=== PATIENT | female | born 1965 | race Caucasian/White ===

== ENCOUNTER 2023-06-05 07:56 | Inpatient (IN) ==
--- OUTSIDE RECORDS SUMMARY | 2023-06-05 08:00 | External Medical Summary | Summary of Care ---
Author Name Unknown Organization [facility] Address [address] [place] [address] Phone [phone] Care Team Providers Care Admissions Specialist Name Role Phone Jean Claude Serrano MD Primary Care Provider [phone] Reason for Visit * Reason Comments New Med Request Encounter Details Date Type Department Care Team Description 02/13/2023 Refill [facility] [address] [place] [address] Jean Claude Serrano MD [address] [place] [address] HTN, goal below 140/90 Allergies Active Allergy Reactions Severity Noted Date Comments Amoxicillin-Pot Clavulanate 04/08/20 rash Pollen Other (Please comment) High 04/04/2015 rhinitis documented as of this encounter (statuses as of 02/13/2023) Medications Medication Sig Dispensed Refills Start Date End Date Status EXCEDRIN MIGRAINE 250-250-65 MG PO TABS as needed 0 Active Cholecalciferol (VITAMIN D3) 2000 units Capsule Take 1 Cap by mouth daily. 90 Cap 1 09/07/2017 Active YARELIS MICROLET LANCETS MISCIndications:Type 2 diabetes mellitus with hemoglobin A1c goal of less than 7.0% ([facility]) Use to test blood sugar up to 2 times daily dx e11.9 100 Each 5 12/27/2018 Active Blood Glucose Monitoring Suppl (CONTOUR NEXT MONITOR) w/Device KITIndications:Type 2 diabetes mellitus with hemoglobin A1c goal of less than 7.0% (HCC) Use to test blood sugar up to 2 times daily dx e11.9 1 Kit 5 12/27/2018 Active aspirin 81 MG chewable tabletIndications:Ty pe 2 diabetes mellitus with hemoglobin A1c goal of less than 7.0% (HCC) Take 1 Tab by mouth daily. with food. 100 Tab 5 03/13/2019 Active Contour Next Test In Vitro Strip (Glucose Blood)Indications:Ty pe 2 diabetes mellitus with hemoglobin A1c goal of less than 7.0% (HCC) TEST UP TO TWO TIMES DAILY 100 Strip 5 04/09/2020 Active Lisinopril 40 MG Oral Tablet Take 1 Tablet by mouth in the morning. 90 Tablet 1 10/13/2022 Active hydroCHLOROthiazide 25 MG Oral Tablet (Hydrodiuril) Take 1 Tablet by mouth in the morning. 90 Tablet 1 10/13/2022 Active metFORMIN HCl ER 500 MG Oral Tablet Extended Release 24 Hour (Glucophage XR)Indications:Type 2 diabetes mellitus with hemoglobin A1c goal of less than 7.0% (HCC) Take 2 Tablets by mouth 2 times a day 30 minutes before morning and evening meals. 360 Tablet 1 10/13/2022 Active Atorvastatin Calcium 20 MG Oral Tablet (Lipitor)Indications :Hyperlipidemia, unspecified hyperlipidemia type Take 1 Tablet by mouth in the morning. 90 Tablet 2 10/13/2022 Active Lisinopril-hydroCHLO ROthiazide 20-25 MG Oral TabletIndications:HT N, goal below 140/90 Take by mouth 1 Tablet in the morning. in the morning.. 30 Tablet 5 01/19/2022 3 Discontinue d(Medicatio n/Dose Changed) documented as of this encounter (statuses as of 02/13/2023) Active Problems Problem Noted Date Type 2 diabetes mellitus with hemoglobin A1c goal of less than 7.0% 11/09/2018 Paroxysmal tachycardia 09/08/2018 Vitamin D deficiency 09/08/2018 HTN, goal below 140/90 09/07/2017 Elevated liver enzymes 09/03/2016 Hyperlipidemia 09/03/2016 OVERWEIGHT, BMI= 29.44 07/25/10 1 Family history of ischemic heart disease 04/23/2008 ADVANCE DIRECTIVE INFORMATION 01/25/2007 Overview: No, Advance Directive brochure given to patient 12/14/06. FX PHALANX, HAND, RIGHT RING, DISTAL PHA LANX 11/16/2005 Chronic rhinitis 10/03/2003 Melasma 02/08/2002 Other acne 02/08/2002 Allergic rhinitis documented as of this encounter (statuses as of 02/13/2023) Resolved Problems Problem Noted Date Resolved Date Prediabetes 07/18/2018 11/16/2018 Overview: Per Prediabetes protocol #1 Impaired glucose tolerance 09/03/201609/08 Cough 08/15/2010 09/08/2018 Family history of diabetes mellitus 09/27/2009 09/08/2018 FINGER INJURY, RIGHT RING 11/16/20052018 POST-BRONCHITIC TUSSIVE SYNDROME 10/03/2003 11/20/2003 ACUTE URI NOS 10/03/2003 08/23/2008 Overview: Resolved per Benign Acute Dxs Protocol #3 ACUTE PHARYNGITIS 06/07/2002 11/20/2003 ACUTE URI NOS 06/07/2002 11/20/2003 Chronic rhinitis 06/07/2002 11/20/2003 Other chronic sinusitis 10/20/1999 11/20/19 04 Cough 10/20/1999 11/20/2003 documented as of this encounter (statuses as of 02/13/2023) Immunizations Name Administration Dates Next Due COVID-19 mRNA, LNP-s, No Pre serve, 2-Dose Series (Moderna) 08/20/2020,07/23/2020 Pneumococcal Polysaccharide PPV23 (Pneumovax) 03/13/2019 Seasonal Influenza, Quadriva lent, No Preserve, 6 Mons & Above, IM 06/09/2022,06/06/2021,03/20/2020,1010/2017,09/07/2017 04/07/2019 Seasonal Influenza, Quadriva lent, No Preserve, IM 09/02/2016 TDAP (age 10 and older)(Boostrix) 06/09/2022 TDAP (age 11 and older)(Adacel) 10/29/2011 Zoster Vaccine Recombinant (Shingrix) 10/17/2020 ,09/15/2019 documented as of this encounter Social History Tobacco Use Types Packs/Day Years Used Date Smoking Tobacco: Never Smokeless Tobacco: Never Alcohol Use Standard Drinks/Week Comments Yes 0 (1 standard drink = 0.6 oz pur e alcohol) social Food Insecurity Answer Date Recorded Within the past 12 months, y ou worried that your food would run out before you got money to buy more. Never true 03/20/2020 Within the past 12 months, t he food you bought just didn't last and you didn't have money to get more. Never true 03/20/2020 Sex Assigned at Date Recorded Not on file Job Start Date Occupation Industry Not on file Not on file Not on file documented as of this encounter Miscellaneous Notes * Telephone Encounter - Desmond Mayers RPh - 02/13/2023 2:38 PM EDTRefused Prescriptions: Disp Refills Lisinopril-hydroCHLOROthiazide 20-25 MG Or*90 Tab*1 Sig: Take by mouth 1 Tablet in the morning. in the morningRefused By: Roberto MAYERS for Refusal: Refill Not AppropriateReason for Refusal Comment: patient no longer on combination, taking individually * Telephone Encounter - Desmond Mayers RPh - 02/13/2023 2:33 PM EDT Patient placed on Lisinopril 40 and HCTZ 25mg seperately as of 10/1122. Request for prior dosing of combination tablet refused. Removed combination tablet from med list to prevent inadvertant refill. Thanks, Desmond Mayers Rph, Pharm D. Clinical Pharmacist [facility] (Former[facility]STEPHANIE [phone] 02/13/2023,2:37 PM documented in this encounter Plan of Treatment Scheduled Procedures Name Priority Associated Diagnoses Date/Ti me COLONOSCOPY FLEXIBLE PROXIMAL DIAGNOSTIC Recall Colon cancer screening Health Maintenance Due Date Last Done Comments Hepatitis B (1 of 3 - 3-dose series) 1965 Hepatitis C Screening 1983 HPV/Co-Test 1995 Cologuard 2010 Fecal Occult Blood Test 2010 Sigmoidoscopy 2010 Pneumococcal Vaccine: Pediatrics (0 to 5 Years) and At-Risk Patients (6 to 64 Years) (2 - PCV) 03/13/2020 03/13/2019 COVID-19 Vaccine (3 - Moderna series) 10/15/2020 08/20/2020, 07/23/2020 DIABETES-FOOT EXAM 03/20/2021 03/20/2020, 03/13/2019 Depression Screening, Annual for Pts 12 and Over 03/20/2021 03/20/2020 Cervical Cancer Screening 05/05/2022 Pap Smear 05/05/2022 05/05/2019, 07/2018, 01/25/2014, Additional history exists Albumin/Creatinine Ratio 10/08/2022 022, 09/08/2018, 03/19/2017 B-12 10/08/2022 10/08/2021, 10/03, 09/15/2019 HbA1c 12/08/2022 06/09/2022, 04/0 12/2021, 04/09/2021, Additional history exists Influenza Vaccine (FLU shot) (#1) 2023 06/09/2022, 06/06/2021, 03/20/2020, Additional history exists GFR 06/09/2023 06/09/2022, 08/0 11/2021, 10/08/2021, Additional history exists Mammogram 12/15/2023 12/14/2022, 09/02, 05/17/2019, Additional history exists DIABETES-EYE EXAM 12/25/2023 12/24/2022, , 08/22/2021, Additional history exists Colonoscopy 05/10/2027 05/10/2017, 05/10/2017 Colorectal Cancer Screening 05/10/2027 Lipid Panel 06/09/2027 06/09/2022, 04/0 12/2021, 12/10/2020, Additional history exists DTaP,Tdap,and Td Vaccines (3 - Td or Tdap) 06/09/2032 06/09/2022, 10/29/2011 Zoster Vaccines Completed 10/17/2020, 09/15/2019 GARDASIL-HPV IMMUNIZATION SERIES Aged Out No longer eligible based on patient's age to complete this topic MENINGOCOCCAL (MENACTRA/MENVEO) Aged Out No longer eligible based on patient's age to complete this topic documented as of this encounter Medical Devices Not on filedocumented as of this encounter Visit Diagnoses Diagnosis HTN, goal below 140/90 Unspecified essential hypertension documented in this encounter Advance Directives Latest Code Status on File Code Status Date Activated Date Inactivated Comments Full Code 09/06/2014 9:44 AM 09/06/2014 3:03 PM This or lacey reflects the patients wishes and were consensually agreed upon. Care Teams Admissions Specialist Relationship Specialty Start Date End Date Jean Claude Serrano MD [address] [place] [address] PCP - General 11/20/03 documented as of this encounter
--- OUTSIDE RECORDS SUMMARY | 2023-06-05 08:00 | External Medical Summary | Summary of Care ---
Author Name Unknown Organization [facility] Address [address] [place] [address] Phone [phone] Care Team Providers Care Copier Field Service Technician Name Role Phone Jean Claude Serrano MD Primary Care Provider [phone] Encounter Details Date Type Department Care Team Description 12/25/2022 Orders Only [facility] [address] [place] [address] Jean Claude Serrano MD [address] [place] [address] Allergies Active Allergy Reactions Severity Noted Date Comments Amoxicillin-Pot Clavulanate 04/08/20 18 rash Pollen Other (Please comment) High 04/04/2015 rhinitis documented as of this encounter (statuses as of 12/25/2022) Medications Medication Sig Dispensed Refills Start Date End Date Status EXCEDRIN MIGRAINE 250-250-65 MG PO TABS as needed 0 Act ebony Cholecalciferol (VITAMIN D3) 2000 units Capsule Take 1 Cap by mouth daily. 90 Cap 1 09/07/2017 Active YARELIS MICROLET LANCETS MISCIndications:Type 2 diabetes mellitus with hemoglobin A1c goal of less than 7.0% ([facility]) Use to test blood sugar up to 2 times daily dx e11.9 100 Each 5 12/27/2018 Active Blood Glucose Monitoring Suppl (CONTOUR NEXT MONITOR) w/Device KITIndications:Type 2 diabetes mellitus with hemoglobin A1c goal of less than 7.0% (HCC) Use to test blood sugar up to 2 times daily dx e11.9 1 Kit 5 12/27/2018 Active aspirin 81 MG chewable tabletIndications:Type 2 diabetes mellitus with hemoglobin A1c goal of less than 7.0% (HCC) Take 1 Tab by mouth daily. with food. 100 Tab 5 03/13/2019 Active Contour Next Test In Vitro Strip (Glucose Blood)Indications:Type 2 diabetes mellitus with hemoglobin A1c goal of less than 7.0% (HCC) TEST UP TO TWO TIMES DAILY 100 Strip 5 04/09/2020 Active Lisinopril-hydroCHLORO thiazide 20-25 MG Oral TabletIndications:HTN, goal below 140/90 Take by mouth 1 Tablet in the morning. in the morning.. 30 Tablet 5 01/19/2022 Active Lisinopril 40 MG Oral Tablet Take [...] Active Atorvastatin Calcium 20 MG Oral Tablet (Lipitor)Indications:H yperlipidemia, unspecified hyperlipidemia type Take 1 Tablet by mouth in the morning. 90 Tablet 2 10/13/2022 Active documented as of this encounter (statuses as of 12/25/2022) Active Problems Problem Noted Date Type 2 [...] as of this encounter (statuses as of 12/25/2022) Resolved Problems Problem Noted Date Resolved Date [...] as of this encounter (statuses as of 12/25/2022) Immunizations Name Administration Dates Next Due COVID-19 mRNA, LNP-s, No Pre serve, 2-Dose Series (Moderna) 08/20/2020,07/23/2020 Pneumococcal Polysaccharide PPV23 (Pneumovax) 03/13/2019 Seasonal Influenza, Quadriva lent, No Preserve, 6 Mons & Above, IM 06/09/2022,06/06/2021,03/20/2020,10/0 10/2017,09/07/2017 04/07/2019 Seasonal Influenza, Quadriva lent, No Preserve, [...] on file documented as of this encounter Plan of Treatment Scheduled Procedures Name Priority Associated Diagnoses Date/Ti me COLONOSCOPY FLEXIBLE PROXIMAL DIAGNOSTIC Recall Colon cancer screening Health Maintenance Due Date Last Done Comments Hepatitis B (1 of 3 - 3-dose series) 1965 Hepatitis C Screening 1983 Cologuard 2010 Fecal Occult Blood Test 2010 Sigmoidoscopy 2010 Pneumococcal Vaccine: Pediatrics (0 to 5 Years) and At-Risk Patients (6 to 64 Years) (2 - PCV) 03/13/2020 03/13/2019 COVID-19 Vaccine (3 - Moderna series) 10/15/2020 08/20/2020, 07/23/2020 DIABETES-FOOT EXAM 03/20/2021 03/20/2020, 03/13/2019 Depression Screening, Annual for Pts 12 and Over 03/20/2021 03/20/2020 Albumin/Creatinine Ratio 10/08/2022 04/ 022, 09/08/2018, 03/19/2017 Yearly B-12 10/08/2022 10/08/2021, 10/03, 09/15/2019 HbA1c 12/08/2022 06/09/2022, 04/0 12/2021, 04/09/2021, Additional history exists GFR 06/09/2023 06/09/2022, 08/0 11/2021, 10/08/2021, Additional history exists DIABETES-EYE EXAM 12/05/2023 12/24/2022, , 08/22/2021, Additional history exists Mammogram 12/15/2023 12/14/2022, 09/02, 05/17/2019, Additional history exists Pap Smear 05/05/2024 05/05/2019, 07/2018, 01/25/2014, Additional history exists Colonoscopy 05/10/2027 05/10/2017, 05/10/2017 Colorectal Cancer Screening 05/10/2027 Lipid Panel 06/09/2027 06/09/2022, 12/2021, 12/10/2020, Additional history exists DTaP,Tdap,and Td Vaccines (3 - Td or Tdap) 06/09/2032 06/09/2022, 10/29/2011 Zoster Vaccines Completed 10/17/2020, 09/15/2019 Influenza Vaccine (FLU shot) Completed 12/2021, 06/06/2021, 03/20/2020, Additional history exists GARDASIL-HPV IMMUNIZATION SERIES Aged Out No longer eligible based on patient's age to complete this topic MENINGOCOCCAL (MENACTRA/MENVEO) Aged Out No longer eligible based on patient's age to complete this topic documented as of this encounter Medical Devices Not on filedocumented as of this encounter Procedures Procedure Name Priority Date/Time Associated Diagnosis Comments DIABETIC EYE EXAM Routine 12/24/2022 documented in this encounter Results * DIABETIC EYE EXAM (12/24/2022) 12/24/2022 Jean Claude Serrano MD OTHER OUTSIDE LAB (SEE SCANNED REPORT) documented in this encounter Advance Directives Latest Code Status on File Code Status Date Activated Date Inactivated Comments Full Code 09/06/2014 9:44 AM 09/06/2014 3:03 PM This or lacey reflects the patients wishes and were consensually agreed upon. Care Teams Copier Field Service Technician Relationship Specialty Start Date End Date Jean Claude Serrano MD [address] [place] [address] PCP - General 11/20/03 documented as of this encounter
--- OUTSIDE RECORDS SUMMARY | 2023-06-05 08:00 | External Medical Summary | Summary of Care ---
Author Name Unknown Organization [facility] Address [address] [place] [address] Phone [phone] Care Team Providers Care Direct Care Provider Name Role Phone Jean Claude Serrano MD Primary Care Provider Reason for Visit * Reason Onset Date Comments Health Maintenance 05/13/2023 Encounter Details Date Type Department Care Team (Late st Contact Info) Description 05/13/2023 Telephone [facility] [address] [place] [address] Jean Claude Serrano MD [address] [place] [address] Health Maintenance Allergies Active Allergy Reactions Criticality Noted Date Comments Amoxicillin-Pot Clavulanate 04/08/20 18 rash Pollen Other (Please comment) High 04/04/2015 rhinitis documented as of this encounter (statuses as of 05/13/2023) Medications Medication Sig Dispensed Refills Start Date End Date Status EXCEDRIN MIGRAINE 250-250-65 MG PO TABS as needed 0 Act ebony Cholecalciferol (VITAMIN D3) 2000 units Capsule Take 1 Cap by mouth daily. 90 Cap 1 09/07/2017 Active YARELIS MICROLET LANCETS MISCIndications:Type 2 diabetes mellitus with hemoglobin A1c goal of less than 7.0% ([facility]) Use to test blood sugar up to [...] as of this encounter (statuses as of 05/13/2023) Active Problems Problem Noted Date Diagnosed Date Type 2 diabetes mellitus wit h hemoglobin A1c goal of less than 7.0% 11/09/2018 Paroxysmal tachycardia 09/08/2018 Vitamin D deficiency 09/08/2018 HTN, goal below 140/90 09/07/2017 Elevated liver enzymes 09/03/2016 Hyperlipidemia 09/03/2016 OVERWEIGHT, BMI= 29.44 07/25/10 07/25/2010 Family history of ischemic heart disease 008 ADVANCE DIRECTIVE INFORMATION 01/25/2007 Overview: No, Advance Directive brochure given to patient 12/14/06. FX PHALANX, HAND, RIGHT RING, DISTAL PHALANX Chronic rhinitis 10/03/2003 Melasma 02/08/2002 Other acne 02/08/2002 Allergic rhinitis documented as of this encounter (statuses as of 05/13/2023) Resolved Problems Problem Noted Date Diagnosed Date Resolved Date Prediabetes 07/18/2018 11/16/2018 Overview: Per Prediabetes protocol #1 Impaired glucose tolerance 09/03/2016 0 09/08/2018 Cough 08/15/2010 09/08/2018 Family history of diabetes mellitus 09/27/2009 09/08/2018 FINGER INJURY, RIGHT RING 11/16/2005 POST-BRONCHITIC TUSSIVE SYNDROME 10/03/2003 11/20/2003 ACUTE URI NOS 10/03/2003 08/23/2008 Overview: Resolved per Benign Acute Dxs Protocol #3 ACUTE PHARYNGITIS 06/07/2002 11/20/2003 ACUTE URI NOS 06/07/2002 11/20/2003 Chronic rhinitis 06/07/2002 11/20/2003 Other chronic sinusitis 10/20/199911/02 Cough 10/20/1999 11/20/2003 documented as of this encounter (statuses as of 05/13/2023) Immunizations Name Administration Dates Next Due COVID-19 mRNA, LNP-s, No Pre serve, 2-Dose Series (Moderna) 08/20/2020,07/23/2020 Pneumococcal Polysaccharide PPV23 (Pneumovax) 03/13/2019 SEASONAL INFLUENZA, PF, 6 M & Above, IM , (FLULAVAL or FLUZONE) 06/09/2022,06/06/2021,03/20/2020,10/10/2017,09/07/2017 04/07/2019 Seasonal Influenza, Quadriva lent, No Preserve, [...] = 0.6 oz pur e alcohol) social PHQ-2 Answer Date Recorded PHQ-2 Score 0 03/20/2020 Hunger Vital Sign Answer Date Recorded Worried About Running Out of Food in the Last Ye ar Never true 03/13/2019 Ran Out of Food in the Last Year Never true 03/13/2019 Sex and Gender Information Value Date Recorded Sex Assigned at Not on file Gender Identity Not on file Sexual Orientation Straight 08/08/2019 3: 47 PM EST Job Start Date Occupation Industry Not on file Not on file Not on file documented as of this encounter Miscellaneous Notes * Telephone Encounter - Hayley Patten LPN - 05/13/2023 1:49 PM EST Care Gaps Comprehensive Care Outreach Last Office/Telemedicine Visit: 06/09/2022 (in office), Visit date not found (telemedicine) Next Office Visit: Visit date not found Hemoglobin AIC Results: Lab Results Component Value Date/Time HEMOGLOBIN A1C - [facility] 6.4 (H) 06/09/2022 01:51 PM HEMOGLOBIN A1C - [facility] 6.0 (H) 10/08/2021 08:01 AM HEMOGLOBIN A1C - [facility] 5.6 04/09/2021 11:36 AM HEMOGLOBIN A1C - [facility] 7.5 (H) 03/20/2020 10:23 AM HEMOGLOBIN A1C - [facility] 6.4 (H) 09/15/2019 10:14 AM HEMOGLOBIN A1C - [facility] 6.1 (H) 03/13/2019 09:45 AM Reviewed Health Maintenance below: Health Maintenance Topic Date Due Hepatitis B (1 of 3 - 3-dose series) Never done Hepatitis C Screening Never done Pneumococcal Vaccine: Pediatrics (0 to 5 Years) and At-Risk Patients (6 to 64 Years) (2 - PCV) 03/13/2020 Diabetic Foot Exam 03/20/2021 Depression Screening 03/20/2021 Cervical Cancer Screening 05/05/2022 Albumin/Creatinine Ratio 10/08/2022 B-12 10/08/2022 HbA1c 12/08/2022 Influenza Vaccine (FLU shot) (1) 03/05/2023 COVID-19 Vaccine (3 - 2022-24 season) 2023 GFR 06/09/2023 Pap Urine/abs ov Care Gap Outreach Action Taken: Left message documented in this encounter Plan of Treatment [...] 64 Years) (2 - PCV) 03/13/2020 03/13/2019 Depression Screening 03/20/2021 03/20/2020 Diabetic Foot Exam 03/20/2021 03/20/2020, 03/13/2019 Cervical Cancer Screening 05/05/2022 Pap Smear 05/05/2022 05/05/2019, 1107/2018, 01/25/2014, Additional history exists Albumin/Creatinine Ratio 10/08/2022 022, 09/08/2018, 03/19/2017 B-12 10/08/2022 10/08/2021, 10/03, 09/15/2019 HbA1c 12/08/2022 06/09/2022, 040 12/2021, 04/09/2021, Additional history exists COVID-19 Vaccine ( season) 2023 08/20/2020, 07/23/2020 Influenza Vaccine (FLU shot) (#1) 2023 06/09/2022, 06/06/2021, 03/20/2020, Additional history exists GFR 06/09/2023 06/09/2022, 08/0 11/2021, 10/08/2021, Additional history exists Mammogram 12/15/2023 12/14/2022, 09/02, 05/17/2019, Additional history exists Diabetic Eye Exam 12/25/2023 12/24/2022, , 08/22/2021, Additional history exists [...] Not on filedocumented as of this encounter Advance Directives Latest Code Status on File Code Status Date Activated Date Inactivated Comments Full Code 09/06/2014 9:44 AM 09/06/2014 3:03 PM This or lacey reflects the patients wishes and were consensually agreed upon. Care Teams Direct Care Provider Relationship Specialty Start Date End Date Jean Claude Serrano MD [address] [facility] [address] PCP - General 11/20/03 documented as of this encounter
--- OUTSIDE RECORDS SUMMARY | 2023-06-05 08:00 | External Medical Summary | Summary of Care ---
Author Name Unknown Organization [facility] Address [address] [place] [address] Phone [phone] Care Team Providers Care Automatic Fabric Cutter Name Role Phone Jean Claude Serrano MD Primary Care Provider Encounter Details Date Type Department Care Team Description 12/08/2022 Orders Only [facility] [address] [place] [address] Jean Claude Serrano MD [address] [place] [address] Allergies Active Allergy Reactions Severity Noted Date Comments Amoxicillin-Pot Clavulanate 04/08/20 18 rash Pollen Other (Please comment) High 04/04/2015 rhinitis documented as of this encounter (statuses as of 12/08/2022) Medications Medication Sig Dispensed Refills Start Date End Date Status EXCEDRIN MIGRAINE 250-250-65 MG PO TABS as needed 0 Act ebony Cholecalciferol (VITAMIN D3) 2000 units Capsule Take 1 Cap by mouth daily. 90 Cap 1 09/07/2017 Active YARELIS MICROLET LANCETS MISCIndications:Type 2 diabetes mellitus with hemoglobin A1c goal of less than 7.0% ([facility]) Use to test blood sugar up [...] as of this encounter (statuses as of 12/08/2022) Active Problems Problem Noted Date Type 2 [...] as of this encounter (statuses as of 12/08/2022) Resolved Problems Problem Noted Date Resolved Date [...] as of this encounter (statuses as of 12/08/2022) Immunizations Name Administration Dates Next Due COVID-19 [...] as of this encounter Plan of Treatment Upcoming Encounters Date Type Specialty Care Team Description 12/14/2022 Imaging Radiology Scheduled Procedures Name Priority Associated Diagnoses Date/Ti [...] PCV) 03/13/2020 03/13/2019 COVID-19 Vaccine (3 - Booster for Moderna series) 10/15/2020 08/20/2020, 07/23/2020 DIABETES-FOOT EXAM 03/20/2021 03/20/2020, 03/13/2019 Depression Screening, Annual for Pts 12 and Over 03/20/2021 03/20/2020 DIABETES-EYE EXAM 08/22/2022 12/04/2022, , 04/24/2020, Additional history exists Mammogram 09/12/2022 09/12/2021, 05/05, 04/28/2017, Additional history exists Albumin/Creatinine Ratio 10/08/20222 022, 09/08/2018, 03/19/2017 Yearly B-12 10/08/2022 10/08/2021, 10/03, 09/15/2019 HbA1c 12/08/2022 06/09/2022, 04/0 12/2021, 04/09/2021, Additional history exists GFR 06/09/2023 06/09/2022, 08/0 11/2021, 10/08/2021, Additional history exists Pap Smear 05/05/2024 05/05/2019, 1107/2018, 01/25/2014, Additional history exists Colonoscopy 05/10/2027 05/10/2017, [...] Associated Diagnosis Comments DIABETIC EYE EXAM Routine 12/04/2022 documented in this encounter Results * DIABETIC EYE EXAM (12/04/2022) 12/04/2022 History Per Patient OTHER OUTSIDE LAB (SEE SCANNED REPORT) documented in this encounter Advance Directives Latest Code Status on File Code Status Date Activated Date Inactivated Comments Full Code 09/06/2014 9:44 AM 09/06/2014 3:03 PM This or lacey reflects the patients wishes and were consensually agreed upon. Care Teams Automatic Fabric Cutter Relationship Specialty Start Date End Date [place] [address] PCP - General 11/20/03 documented as of this encounter
[2023-06-05] MEDS ORDERED: ONDANSETRON INJ 2 MG/ML 2 ML VIAL IV STA (08:18)
--- NOTE | 2023-06-05 08:22 | Emergency Department Note ---
Impression & Plan DKA (diabetic ketoacidosis), Acute hyperglycemia, Metabolic acidosis, Vomiting ED Provider Note NAME: LAKSHMI ORNELAS AGE: 57 SEX: F : 1965 ARRIVES VIA: Walk-In INFORMANT: Patient ED PROVIDER(S): Andrea Raman DO CHIEF COMPLAINT: vomiting and sob HPI: Patient is a 57-year-old type II diabetic who presents to the ER for upper respiratory symptoms which initially started over a week ago. She was placed on doxycycline and steroids recently. Over the past 24 hours she has been having persistent vomiting. She is unable to keep anything down. Sugars have been reading critically high. She does still admit to shortness of breath. She does have diffuse myalgias. No dysuria, urgency, or frequency. No other exacerbating or remitting factors. No history of asthma or COPD. ADDITIONAL HISTORY OBTAINED: Per HPI Chronic Medical/Social Conditions Affecting Care: Per HPI PAST MEDICAL HISTORY:See Below PAST SURGICAL HISTORY:See Below FAMILY HISTORY:See Below SOCIAL HISTORY:See Below HOME MEDICATIONS:See Below ALLERGIES:See Below VITALS:See Below PHYSICAL EXAMINATION: GENERAL: Sitting up in bed, alert, ill-appearing, disheveled EYE EXAM: normal conjunctiva. OROPHARYNX: mucous membranes are dry NECK: supple, no nuchal rigidity, no adenopathy, non-tender LUNGS: Clear to auscultation. Normal chest wall mechanics HEART: no murmurs, S1 normal and S2 normal ABDOMEN: abdomen soft, non-tender, normo-active bowel sounds, no masses, no rebound or guarding. BACK: Back is symmetrical on inspection and there is no deformity, no midline tenderness, no CVA tenderness. SKIN: no rashes and no bruising UPPER EXTREMITIES: upper extremities are grossly normal. LOWER EXTREMITIES: No pitting edema. NEURO EXAM: Normal sensorium, cranial nerves II-XII grossly intact, normal speech, no gross weakness of arms, no gross weakness of legs. MEDICAL DECISION MAKING: Patient is a 57-year-old female who presents the ER for nausea vomiting. IV was established blood work is obtained. Labs show no significant leukocytosis or anemia. INR unremarkable. ABG with a pH of 7.1, bicarb of 3. BMP with a hyponatremia 131 and a potassium of 5.1 in the setting of a CO2 of 8 with a 30 and a creatinine of 2.4 consistent with DKA. Sugars were initially greater than 800. Lactate was slightly elevated. Bilirubin and LFTs were unremarkable. Troponin was negative. Lipase mildly elevated. Viral panel was negative. Patient had a benign abdominal exam. She was given 2 L of normal saline IV bolus x1 in combination with 2 g of Rocephin as prophylaxis. Following this she was given additional liter bolus of Plasma-Lyte with 10 mEq of potassium. She was then placed on Plasma-Lyte 1 L with 40 mill equivalents of potassium at 250 mL an hour for 4 hours per the request of cautery from the ICU. I also discussed the case with the hospitalist Dr. Peterson for further evaluation management treatment. Patient was updated bedside. External Records Reviewed: None Consults/Care Managements Discussions: Per [facility] Triage Nursing notes reviewed. Limited review of prior medical records performed Vital Signs: reviewed and remarkable for hypotension Differential diagnosis: Infection, dehydration, metabolic abnormality, hypo/hyperglycemia, electrolyte disturbance, anemia, hypoxia, cardiac sources, intracerebral event, toxicologic, neurologic, as well as other pathologies. ER treatment provided: See below Diagnostics interpreted by me include EKG and cardiac monitoring as listed below: -Cardiac Monitoring: An order was placed for continuous cardiac monitoring. The monitor shows a rate of 90 with sinus rhythm. -ECG: Sinus rhythm rate 83 Normal axis No PVCs QTc 444 -Laboratory studies:Interpreted by me as stated above in MDM and shown below. Imaging studies: Xrays: As interpreted by me: Portable AP upright 1 view of the chest shows no focal and straight CTs show: none Procedures:none Critical Care: I have personally spent 75 minutes of critical care time in the direct management of this patient. This includes bedside care, interpretation of diagnostic studies, and testing, discussion with consultants, patient, and family members, and other required patient management activities. This 75 minutes is in excess of all separately billable procedures. Past Med/Surg History Social History Smoking Status: Never smoker Feels Safe at Home: Yes Allergies Allergies Allergy/AdvReac Type Severity Reaction Status Date / Time No Known Allergies Allergy Verified 06/05/23 09:10 [id number] Allergy Unknown Unknown Uncoded 06/05/23 09:10 [id number] Allergy Unknown Unknown Uncoded 06/05/23 09:10 N Allergy Unknown Unknown Uncoded 06/05/23 09:10 Home Meds Home Medications Medication Instructions Recorded Confirmed atorvastatin 20 mg tablet 20 mg PO HS 06/05/23 06/05/23 doxycycline monohydrate 100 mg 100 mg PO BID 06/05/23 06/05/23 tablet hydrochlorothiazide 25 mg tablet 25 mg PO QAM 06/05/23 06/05/23 lisinopril 40 mg tablet 40 mg PO QAM 06/05/23 06/05/23 metformin 500 mg tablet,extended 1,000 mg PO BID 06/05/23 06/05/23 release 24 hr Results & Data (ED) Vital Signs Vital Signs - 24 hr 06/05/23 08:04 06/05/23 08:14 06/05/23 08:17 Temperature 36.0 C L Temperature Source Temporal Artery Scan Pulse Rate 92 H 88 87 Pulse Rate from SpO2 Sensor Respiratory Rate 20 Blood Pressure 95/61 L 126/75 Blood Pressure Mean 72 92 Pulse Oximetry 100 Oxygen Delivery Method Room Air Sepsis Recent Fever Within 48 Hours No Sepsis New/Unexplained Change in Mental Status N/A Sepsis Action Taken by Nursing No Action Required 06/05/23 08:18 06/05/23 09:18 06/05/23 09:30 Temperature Temperature Source Pulse Rate 82 82 83 Pulse Rate from SpO2 Sensor 82 83 Respiratory Rate 20 19 Blood Pressure 124/70 118/63 Blood Pressure Mean 88 81 Pulse Oximetry 100 100 100 Oxygen Delivery Method Room Air Sepsis Recent Fever Within 48 Hours Sepsis New/Unexplained Change in Mental Status Sepsis Action Taken by Nursing 06/05/23 10:00 Temperature Temperature Source Pulse Rate 86 Pulse Rate from SpO2 Sensor 86 Respiratory Rate 26 H Blood Pressure 125/76 Blood Pressure Mean 92 Pulse Oximetry 100 Oxygen Delivery Method Sepsis Recent Fever Within 48 Hours Sepsis New/Unexplained Change in Mental Status Sepsis Action Taken by Nursing Laboratory Data 06/05/23 08:15 06/05/23 10:30 Lab Results 06/05/23 06/05/23 06/05/23 Range/Units 08:08 08:15 08:21 WBC 7.82 (4.8-10.8) K/ul RBC 5.27 (4.20-5.40) M/uL Hgb 15.1 (12.0-16.0) g/dl POC Hgb 16.0 (12.0-16.0) g/dl Hct 46.3 (37.0-47.0) % POC Hct 47 (37-47) % MCV 87.9 (80.0-100.0) fL MCH 28.7 (25.0-34.0) pg MCHC 32.6 (32.0-36.0) g/dL RDW Std Deviation 42.1 (36.4-46.3) fL RDW Coeff of Hever 13.1 (11.5-14.5) % Plt Count 374 (130-400) K/uL MPV 10.3 (9.4-12.4) fL Immature Gran % (Auto) 0.8 % Neut % (Auto) 67.9 % Lymph % (Auto) 27.7 % Thayer % (Auto) 3.3 % Eos % (Auto) 0.0 % Baso % (Auto) 0.3 % Neut # (Auto) 5.31 (1.40-6.50) K/uL Lymph # (Auto) 2.17 (1.20-3.40) K/uL Thayer # (Auto) 0.26 (0.11-0.59) K/uL Eos # (Auto) 0.00 (0.00-0.50) K/uL Baso # (Auto) 0.02 (0.00-0.20) K/uL Immature Gran # (Auto) 0.06 (0.01-0.20) K/uL PT Cancelled INR Cancelled ABG pH (7.35-7.45) ABG pCO2 (35-46) mmHg ABG pO2 (80-95) mmHg ABG HCO3 (19-24) mmol/L ABG O2 Saturation (90-95) % ABG Base Excess (-9-1.8) mEq/L Benjamin Test (Pos) Oxygen Given POC Sodium 124 L (135-144) mmol/L Sodium 127 L (136-145) mmol/L POC Potassium 5.1 H (3.3-5.0) mmol/L Potassium 5.2 H (3.5-5.1) mmol/L POC Chloride 95 L (101-112) mmol/L Chloride 84 L (98-107) mmol/L Carbon Dioxide 7 L* (21-32) mmol/L POC Total CO2 8 L* (24-31) mmol/L Anion Gap 36 H (3-11) POC Anion Gap 27.0 H (16-25) mmol/L POC BUN 85 H (7-18) mg/dl BUN 77 H (6-23) mg/dl Creatinine 2.71 H (0.6-1.2) mg/dl POC Creatinine 2.5 H (0.6-1.3) mg/dl Est Cr Clr Drug Dosing 25.0 ml/min Est GFR ( Amer) 21.7 ml/min Est GFR (Non-Af Amer) 18.7 ml/min BUN/Creatinine Ratio 28.4 H (10-20) Glucose 859 H* (70-99(Fasting)) mg/dl POC Glucose > 600 H* (70-99) mg/dl POC Glucose (other) > 700 H* (70-99) mg/dl Calcium 9.8 (8.6-10.3) mg/dl POC Ioniz Calcium Florian 1.18 (1.12-1.32) mmol/l Total Bilirubin 0.6 (0.2-1.0) mg/dl AST 10 L (13-39) U/L ALT 25 (7-52) U/L Alkaline Phosphatase 99 (34-104) U/L Troponin I High Sens 6.9 (0-14) pg/ml Total Protein 7.9 (6.0-8.3) gm/dl Albumin 4.4 (3.4-5.0) gm/dl Globulin 3.5 (2.5-4.0) gm/dl Albumin/Globulin Ratio 1.3 (0.9-2) Lipase 136 H (11-82) U/L Adenovirus (PCR) (NotDetected) B. pertussis DNA (PCR) (NotDetected) B.parapertussis DNA PCR (NotDetected) C. pneumoniae DNA (PCR) (NotDetected) Coronavirus OC43 (PCR) (NotDetected) Coronavirus HKU1 (PCR) (NotDetected) Coronavirus 229E (PCR) (NotDetected) SARS-CoV-2 (PCR) (Negative) Coronavirus NL63 (PCR) (NotDetected) Human Metapneumovir PCR (NotDetected) Influenza Type A (PCR) (Neg) Influenza Type B (PCR) (Neg) M. pneumoniae (PCR) (NotDetected) Parainfluenza 1 (PCR) (NotDetected) Parainfluenza 2 (PCR) (NotDetected) Parainfluenza 3 (PCR) (NotDetected) Parainfluenza 4 (PCR) (NotDetected) RSV (RT-PCR) (Neg) RSV (PCR) (NotDetected) Entero/Rhino (PCR) (NotDetected) 06/05/23 06/05/23 06/05/23 Range/Units 08:37 08:50 08:50 WBC (4.8-10.8) K/ul RBC (4.20-5.40) M/uL Hgb (12.0-16.0) g/dl POC Hgb (12.0-16.0) g/dl Hct (37.0-47.0) % POC Hct (37-47) % MCV (80.0-100.0) fL MCH (25.0-34.0) pg MCHC (32.0-36.0) g/dL RDW Std Deviation (36.4-46.3) fL RDW Coeff of Hever (11.5-14.5) % Plt Count (130-400) K/uL MPV (9.4-12.4) fL Immature Gran % (Auto) % Neut % (Auto) % Lymph % (Auto) % Thayer % (Auto) % Eos % (Auto) % Baso % (Auto) % Neut # (Auto) (1.40-6.50) K/uL Lymph # (Auto) (1.20-3.40) K/uL Thayer # (Auto) (0.11-0.59) K/uL Eos # (Auto) (0.00-0.50) K/uL Baso # (Auto) (0.00-0.20) K/uL Immature Gran # (Auto) (0.01-0.20) K/uL PT INR ABG pH 7.14 L* (7.35-7.45) ABG pCO2 9 L (35-46) mmHg ABG pO2 132 H (80-95) mmHg ABG HCO3 3 L (19-24) mmol/L ABG O2 Saturation 96.7 H (90-95) % ABG Base Excess -23.3 L (-9-1.8) mEq/L Benjamin Test Pos (Pos) Oxygen Given 4L POC Sodium (135-144) mmol/L Sodium (136-145) mmol/L POC Potassium (3.3-5.0) mmol/L Potassium (3.5-5.1) mmol/L POC Chloride (101-112) mmol/L Chloride (98-107) mmol/L Carbon Dioxide (21-32) mmol/L POC Total CO2 (24-31) mmol/L Anion Gap (3-11) POC Anion Gap (16-25) mmol/L POC BUN (7-18) mg/dl BUN (6-23) mg/dl Creatinine (0.6-1.2) mg/dl POC Creatinine (0.6-1.3) mg/dl Est Cr Clr Drug Dosing ml/min Est GFR ( Amer) ml/min Est GFR (Non-Af Amer) ml/min BUN/Creatinine Ratio (10-20) Glucose (70-99(Fasting)) mg/dl POC Glucose (70-99) mg/dl POC Glucose (other) (70-99) mg/dl Calcium (8.6-10.3) mg/dl POC Ioniz Calcium Florian (1.12-1.32) mmol/l Total Bilirubin (0.2-1.0) mg/dl AST (13-39) U/L ALT (7-52) U/L Alkaline Phosphatase (34-104) U/L Troponin I High Sens (0-14) pg/ml Total Protein (6.0-8.3) gm/dl Albumin (3.4-5.0) gm/dl Globulin (2.5-4.0) gm/dl Albumin/Globulin Ratio (0.9-2) Lipase (11-82) U/L Adenovirus (PCR) Not Detected (NotDetected) B. pertussis DNA (PCR) Not Detected (NotDetected) B.parapertussis DNA PCR Not Detected (NotDetected) C. pneumoniae DNA (PCR) Not Detected (NotDetected) Coronavirus OC43 (PCR) Not Detected (NotDetected) Coronavirus HKU1 (PCR) Not Detected (NotDetected) Coronavirus 229E (PCR) Not Detected (NotDetected) SARS-CoV-2 (PCR) NEGATIVE Not Detected (Negative) Coronavirus NL63 (PCR) Not Detected (NotDetected) Human Metapneumovir PCR Not Detected (NotDetected) Influenza Type A (PCR) Negative (Neg) Influenza Type B (PCR) (Neg) M. pneumoniae (PCR) (NotDetected) Parainfluenza 1 (PCR) (NotDetected) Parainfluenza 2 (PCR) (NotDetected) Parainfluenza 3 (PCR) (NotDetected) Parainfluenza 4 (PCR) (NotDetected) RSV (RT-PCR) (Neg) RSV (PCR) (NotDetected) Entero/Rhino (PCR) (NotDetected) 06/05/23 06/05/23 06/05/23 Range/Units 08:50 08:50 09:44 WBC (4.8-10.8) K/ul RBC (4.20-5.40) M/uL Hgb (12.0-16.0) g/dl POC Hgb (12.0-16.0) g/dl Hct (37.0-47.0) % POC Hct (37-47) % MCV (80.0-100.0) fL MCH (25.0-34.0) pg MCHC (32.0-36.0) g/dL RDW Std Deviation (36.4-46.3) fL RDW Coeff of Hever (11.5-14.5) % Plt Count (130-400) K/uL MPV (9.4-12.4) fL Immature Gran % (Auto) % Neut % (Auto) % Lymph % (Auto) % Thayer % (Auto) % Eos % (Auto) % Baso % (Auto) % Neut # (Auto) (1.40-6.50) K/uL Lymph # (Auto) (1.20-3.40) K/uL Thayer # (Auto) (0.11-0.59) K/uL Eos # (Auto) (0.00-0.50) K/uL Baso # (Auto) (0.00-0.20) K/uL Immature Gran # (Auto) (0.01-0.20) K/uL PT 10.3 INR 0.9 ABG pH (7.35-7.45) ABG pCO2 (35-46) mmHg ABG pO2 (80-95) mmHg ABG HCO3 (19-24) mmol/L ABG O2 Saturation (90-95) % ABG Base Excess (-9-1.8) mEq/L Benjamin Test (Pos) Oxygen Given POC Sodium (135-144) mmol/L Sodium (136-145) mmol/L POC Potassium (3.3-5.0) mmol/L Potassium (3.5-5.1) mmol/L POC Chloride (101-112) mmol/L Chloride (98-107) mmol/L Carbon Dioxide (21-32) mmol/L POC Total CO2 (24-31) mmol/L Anion Gap (3-11) POC Anion Gap (16-25) mmol/L POC BUN (7-18) mg/dl BUN (6-23) mg/dl Creatinine (0.6-1.2) mg/dl POC Creatinine (0.6-1.3) mg/dl Est Cr Clr Drug Dosing ml/min Est GFR ( Amer) ml/min Est GFR (Non-Af Amer) ml/min BUN/Creatinine Ratio (10-20) Glucose 745 H* (70-99(Fasting)) mg/dl POC Glucose (70-99) mg/dl POC Glucose (other) (70-99) mg/dl Calcium (8.6-10.3) mg/dl POC Ioniz Calcium Florian (1.12-1.32) mmol/l Total Bilirubin (0.2-1.0) mg/dl AST (13-39) U/L ALT (7-52) U/L Alkaline Phosphatase (34-104) U/L Troponin I High Sens (0-14) pg/ml Total Protein (6.0-8.3) gm/dl Albumin (3.4-5.0) gm/dl Globulin (2.5-4.0) gm/dl Albumin/Globulin Ratio (0.9-2) Lipase (11-82) U/L Adenovirus (PCR) (NotDetected) B. pertussis DNA (PCR) (NotDetected) B.parapertussis DNA PCR (NotDetected) C. pneumoniae DNA (PCR) (NotDetected) Coronavirus OC43 (PCR) (NotDetected) Coronavirus HKU1 (PCR) (NotDetected) Coronavirus 229E (PCR) (NotDetected) SARS-CoV-2 (PCR) (Negative) Coronavirus NL63 (PCR) (NotDetected) Human Metapneumovir PCR (NotDetected) Influenza Type A (PCR) Not Detected (Neg) Influenza Type B (PCR) Negative Not Detected (Neg) M. pneumoniae (PCR) Not Detected (NotDetected) Parainfluenza 1 (PCR) Not Detected (NotDetected) Parainfluenza 2 (PCR) Not Detected (NotDetected) Parainfluenza 3 (PCR) Not Detected (NotDetected) Parainfluenza 4 (PCR) Not Detected (NotDetected) RSV (RT-PCR) Negative (Neg) RSV (PCR) Not Detected (NotDetected) Entero/Rhino (PCR) Not Detected (NotDetected) 06/05/23 06/05/23 Range/Units 10:16 10:30 WBC (4.8-10.8) K/ul RBC (4.20-5.40) M/uL Hgb (12.0-16.0) g/dl POC Hgb (12.0-16.0) g/dl Hct (37.0-47.0) % POC Hct (37-47) % MCV (80.0-100.0) fL MCH (25.0-34.0) pg MCHC (32.0-36.0) g/dL RDW Std Deviation (36.4-46.3) fL RDW Coeff of Hever (11.5-14.5) % Plt Count (130-400) K/uL MPV (9.4-12.4) fL Immature Gran % (Auto) % Neut % (Auto) % Lymph % (Auto) % Thayer % (Auto) % Eos % (Auto) % Baso % (Auto) % Neut # (Auto) (1.40-6.50) K/uL Lymph # (Auto) (1.20-3.40) K/uL Thayer # (Auto) (0.11-0.59) K/uL Eos # (Auto) (0.00-0.50) K/uL Baso # (Auto) (0.00-0.20) K/uL Immature Gran # (Auto) (0.01-0.20) K/uL PT INR ABG pH (7.35-7.45) ABG pCO2 (35-46) mmHg ABG pO2 (80-95) mmHg ABG HCO3 (19-24) mmol/L ABG O2 Saturation (90-95) % ABG Base Excess (-9-1.8) mEq/L Benjamin Test (Pos) Oxygen Given POC Sodium (135-144) mmol/L Sodium 131 L (136-145) mmol/L POC Potassium (3.3-5.0) mmol/L Potassium 5.1 (3.5-5.1) mmol/L POC Chloride (101-112) mmol/L Chloride 92 L (98-107) mmol/L Carbon Dioxide 8 L* (21-32) mmol/L POC Total CO2 (24-31) mmol/L Anion Gap 31 H (3-11) POC Anion Gap (16-25) mmol/L POC BUN (7-18) mg/dl BUN 75 H (6-23) mg/dl Creatinine 2.40 H D (0.6-1.2) mg/dl POC Creatinine (0.6-1.3) mg/dl Est Cr Clr Drug Dosing 28.2 ml/min Est GFR ( Amer) 25.1 ml/min Est GFR (Non-Af Amer) 21.7 ml/min BUN/Creatinine Ratio 31.3 H (10-20) Glucose 696 H* (70-99(Fasting)) mg/dl POC Glucose > 600 H* (70-99) mg/dl POC Glucose (other) (70-99) mg/dl Calcium 9.2 (8.6-10.3) mg/dl POC Ioniz Calcium Florian (1.12-1.32) mmol/l Total Bilirubin (0.2-1.0) mg/dl AST (13-39) U/L ALT (7-52) U/L Alkaline Phosphatase (34-104) U/L Troponin I High Sens (0-14) pg/ml Total Protein (6.0-8.3) gm/dl Albumin (3.4-5.0) gm/dl Globulin (2.5-4.0) gm/dl Albumin/Globulin Ratio (0.9-2) Lipase (11-82) U/L Adenovirus (PCR) (NotDetected) B. pertussis DNA (PCR) (NotDetected) B.parapertussis DNA PCR (NotDetected) C. pneumoniae DNA (PCR) (NotDetected) Coronavirus OC43 (PCR) (NotDetected) Coronavirus HKU1 (PCR) (NotDetected) Coronavirus 229E (PCR) (NotDetected) SARS-CoV-2 (PCR) (Negative) Coronavirus NL63 (PCR) (NotDetected) Human Metapneumovir PCR (NotDetected) Influenza Type A (PCR) (Neg) Influenza Type B (PCR) (Neg) M. pneumoniae (PCR) (NotDetected) Parainfluenza 1 (PCR) (NotDetected) Parainfluenza 2 (PCR) (NotDetected) Parainfluenza 3 (PCR) (NotDetected) Parainfluenza 4 (PCR) (NotDetected) RSV (RT-PCR) (Neg) RSV (PCR) (NotDetected) Entero/Rhino (PCR) (NotDetected) Administered Medications Insulin Human Regular 250 (units/ Sodium Chloride) 250 mls @ 9.2 mls/hr IV .Q24H [facility]; Protocol Stop: 07/05/23 08:29 Last Titration: 06/05/23 11:48 Dose: 9.2 units/hr, 9.2 mls/hr Documented By: IDRIS Co-signed By: JOSH Admin: 06/05/23 09:14 Dose: 7.7 units/hr, 7.7 mls/hr Documented By: IDRIS Co-signed By: STEPH Insulin Aspart (Insulin Aspart Per Unit Charge) 0 units SC ACHS [facility] Stop: 07/05/23 12:23 Last Admin: 06/05/23 12:33 Dose: Not Given Documented By: ONOFRE Co-signed By: GPF Discontinued Medications Sodium Chloride (Nss) 1,000 mls @ 999 mls/hr IV .Q1H1M [facility] Stop: 06/05/23 10:30 Last Infusion: 06/05/23 10:18 Dose: Infused Documented By: Admin: 06/05/23 09:17 Dose: 999 mls/hr Documented By: Infusion: 06/05/23 09:17 Dose: Infused Documented By: Admin: 06/05/23 08:38 Dose: 999 mls/hr Documented By: IDRIS Ceftriaxone Sodium (Rocephin) 2,000 mg in 50 mls @ 100 mls/hr IV NOW STA Stop: 06/05/23 10:21 Last Infusion: 06/05/23 11:13 Dose: Infused Documented By: Admin: 06/05/23 10:43 Dose: 100 mls/hr Documented By: IDRIS Parenteral Electrolytes (Plasma-Lyte A Ph 7.4) 1,000 mls @ 999 mls/hr IV .Q1H1M ONE Stop: 06/05/23 10:52 Last Admin: 06/05/23 11:00 Dose: Not Given Documented By: IDRIS Potassium Chloride 10 meq/ (Parenteral Electrolytes) 1,005 mls @ 999 mls/hr IV .Q1H1M [facility] Stop: 06/05/23 11:15 Last Infusion: 06/05/23 12:38 Dose: Infused Documented By: Admin: 06/05/23 10:58 Dose: 999 mls/hr Documented By: IDRIS Insulin Aspart (Insulin Aspart Per Unit Charge) 0 units SC [facility] Stop: 07/05/23 11:29 Last Admin: 06/05/23 12:37 Dose: Not Given Documented By: ONOFRE Insulin Human Regular (Novolin-R Bolus From Bag) 8 units IV ONE ONE Stop: 06/05/23 09:01 Last Admin: 06/05/23 09:15 Dose: 8 units Documented By: IDRIS Co-signed By: STEPH Avila (Stat Iv Infusion Titration Per Protocol) 1 each N/A NOW STA Stop: 06/05/23 08:24 Last Admin: 06/05/23 09:17 Dose: Not Given Documented By: IDRIS Avila (Icu Protocol For Hyperglycemia) 1 each N/A ACHS [facility] Stop: 06/07/23 12:23 Last Admin: 06/05/23 12:33 Dose: Not Given Documented By: ONOFRE Avila (Dka Goal Range 150-250 Mg/Dl) 1 each N/A ONE ONE Stop: 06/05/23 12:25 Last Admin: 06/05/23 12:36 Dose: 1 each Documented By: ONOFRE Ondansetron HCl (Ondansetron Inj 2 Mg/Ml 2 Ml Vial) 4 mg IV NOW STA Stop: 06/05/23 08:19 Last Admin: 06/05/23 08:37 Dose: 4 mg Documented By: IDRIS Imaging Data Radiologist's Impression: Chest X-Ray 06/05/23 08:19 XR chest 1V portable CLINICAL HISTORY: Cough. COMPARISON STUDY: No previous studies for comparison. FINDINGS: Lung volumes are normal. Lungs are clear. There is no pneumothorax or pleural effusion. Cardiac size is normal. Mediastinal contours are normal. There is no evidence for pulmonary edema. IMPRESSION: No acute cardiopulmonary findings. ACT 112: Negative or not required by law. Electronically signed by: Nathan Acuña M.D. 06/05/2023 8:38 AM Discharge Plan Visit Data Chief Complaint: Hyperglycemia Stated Complaint: VOMITING, SOB ED Provider: Andrea Raman Discharge Problem: DKA (diabetic ketoacidosis), Acute hyperglycemia, Metabolic acidosis, Vomiting Patient Disposition: Admitted As Inpatient Discharge Instructions Interventions: ED Discharge Assessment Last Done: 06/05/23 11:51 Discharge Problem: DKA (diabetic ketoacidosis) Qualifiers: Diabetes mellitus type: other specified (including JEANMARIE) Diabetes mellitus complication detail: without coma Qualified Code(s): E13.10 - Other specified diabetes mellitus with ketoacidosis without coma Vomiting Qualifiers: Vomiting type: unspecified Nausea presence: unspecified Qualified Code(s): R 11.10 - Vomiting, unspecified
[2023-06-05] MEDS ORDERED: CARBOHYDRATES FOR HYPOGLYCEMIA PO PRN (08:23)
[2023-06-05] MEDS ORDERED: STAT IV Infusion **Titration per Protocol STA ×2 (08:23→12:24)
[2023-06-05] MEDS ORDERED: GLUCOSE 40% GEL 15 GM TUBE PO PRN ×2 (08:23→13:00)
[2023-06-05] MEDS ORDERED: DEXTROSE 50% 50 ML SYRINGE IV PRN ×2 (08:23→13:00)
[2023-06-05] MEDS ORDERED: GLUCAGON FOR INJ 1 MG VIAL SQ PRN (08:23)
[2023-06-05] MEDS ORDERED: GLUCOSE 10 TAB/TUBE PO PRN ×2 (08:23→13:00)
[2023-06-05] MEDS ORDERED: DKA GOAL RANGE 150-250 mg/dl ONE ×2 (08:23→12:24)
[2023-06-05 08:35] LABS: iSTAT Blood Urea Nitrogen 85 mg/dl (7-18); iSTAT Carbon Dioxide 8 mmol/L (24-31); iSTAT Chloride 95 mmol/L (101-112); iSTAT Creatinine 2.5 mg/dl (0.6-1.3); iSTAT Glucose > 700 mg/dl (70-99); iSTAT Hematocrit 47 % (37-47); iSTAT Ionized Calcium 1.18 mmol/l (1.12-1.32); iSTAT Potassium 5.1 mmol/L (3.3-5.0); iSTAT Sodium 124 mmol/L (135-144)
[2023-06-05] MEDS: SODIUM CHLORIDE 0.9% 1,000 ML IV SCH ×2 (08:38→09:17)
--- NOTE | 2023-06-05 08:39 | XRay Report ---
XR chest 1V portable CLINICAL HISTORY: Cough. COMPARISON STUDY: No previous studies for comparison. FINDINGS: Lung volumes are normal. Lungs are clear. There is no pneumothorax or pleural effusion. Car diac size is normal. Mediastinal contours are normal. There is no evidence for pulmonary edema. IMPRESSION: No acute cardiopulmonary findings. ACT 112: Negative or not required by law. Electronically signed by: Nathan Acuña M.D. 06/05/2023 8:38 AM
[2023-06-05 08:48] LABS: Basophils # (auto) 0.02 K/uL (0.00-0.20); Basophils % (auto) 0.3 %; Hematocrit (blood only) 46.3 % (37.0-47.0); Hemoglobin 15.1 g/dl (12.0-16.0); Immature Granulocytes # (auto) 0.06 K/uL (0.01-0.20); Immature Granulocytes % (auto) 0.8 %; Lymphocytes # (auto) 2.17 K/uL (1.20-3.40); Lymphocytes % (auto) 27.7 %; Mean Corpuscular Hemoglobin 28.7 pg (25.0-34.0); Mean Corpuscular Hgb Conc 32.6 g/dL (32.0-36.0); Mean Corpuscular Volume 87.9 fL (80.0-100.0); Mean Platelet Volume 10.3 fL (9.4-12.4); Monocytes # (auto) 0.26 K/uL (0.11-0.59); Monocytes % (auto) 3.3 %; Neutrophils # (auto) 5.31 K/uL (1.40-6.50); Neutrophils % (auto) 67.9 %; Platelet Count 374 K/uL (130-400); RDW Coefficient of Variation 13.1 % (11.5-14.5); RDW Standard Deviation 42.1 fL (36.4-46.3); Red Blood Count 5.27 M/uL (4.20-5.40); White Blood Count 7.82 K/ul (4.8-10.8)
[2023-06-05 08:51] LABS: Allen Test Pos (Pos); Base Excess ABG -23.3 mEq/L (-9-1.8); HCO3 ABG 3 mmol/L (19-24); Oxygen Saturation ABG 96.7 % (90-95); PCO2 ABG 9 mmHg (35-46); PO2 ABG 132 mmHg (80-95)
[2023-06-05] MEDS ORDERED: NovoLIN-R BOLUS FROM BAG IV ONE (09:00)
[2023-06-05] MEDS: INSULIN REGULAR 250 UNITS in SODIUM CHLORIDE 0.9% 247.5 ML IV SCH (09:14)
[2023-06-05 09:30] LABS: pH ABG 7.14 (7.35-7.45)
[2023-06-05 09:46] LABS: Albumin Globulin Ratio 1.3 (0.9-2); Albumin Level 4.4 gm/dl (3.4-5.0); BUN Creatinine Ratio 28.4 (10-20); Bilirubin,Total 0.6 mg/dl (0.2-1.0); Calcium 9.8 mg/dl (8.6-10.3); Est GFR (African American) 21.7 ml/min; Est GFR (Non-African American) 18.7 ml/min; Globulin 3.5 gm/dl (2.5-4.0); Potassium 5.2 mmol/L (3.5-5.1); Total Protein 7.9 gm/dl (6.0-8.3); Troponin I High Sensitivity 6.9 pg/ml (0-14)
[2023-06-05 09:50] LABS: Influenza A virus by PCR Negative (Neg); Influenza B virus by PCR Negative (Neg); RSV by PCR Negative (Neg); SARS CoV2 RNA(COVID-19) Ceph NEGATIVE (Negative)
[2023-06-05] MEDS ORDERED: PLASMA-LYTE A 1,000 ML IV ONE (09:52)
[2023-06-05] MEDS ORDERED: cefTRIAXone SODIUM 2,000 MG/50 ML BAG IV STA (09:52)
--- NOTE | 2023-06-05 09:58 | Critical Care Consultation ---
Date of Consultation June 05, 2023 Assessment & Plan (1) Vomiting: (2) Metabolic acidosis: (3) DKA (diabetic ketoacidosis): (4) TRINA (acute kidney injury): (5) Hypertension: (6) Dyslipidemia: Plan Reason Critically Ill: 57-year-old female with past medical history of diabetes presents to the hospital with generalized fatigue. Was found to be in DKA. Sent for ICU for further management Neuro - [facility] ICU: Negative Cardiac - --Hypotension at presentation Responded to fluids Continue to monitor and keep MAP greater than 65 -- History of hypertension On lisinopril and hydrochlorothiazide at home Respiratory - -- No active issues GI - -- Nausea and vomiting Likely secondary to DKA Symptomatic treatment Mildly elevated lipase which could be seen in DKA RENAL/LYTES - -- TRINA Likely prerenal from dehydration Monitor BUN/creatinine Avoid nephrotoxic medications Strict ins and outs -- HAGMA Delta-delta: 1.2, as needed Likely sec to ketoacidosis with lactic acidosis Monitor - Strict in and out ENDO - -- Diabetic ketoacidosis Continue with insulin drip until anion gap closes Decreasing blood glucose no more than 100 in an hour Replace potassium IV when potassium level between 3.3-5.3 BMP every 4 hours Continue with IV fluids --History of diabetes Follow-up HbA1c HEME - Monitor H&H ID - -- No source of infection UA clean, chest x-ray clean --Prophylaxis VTE: Lovenox GI: None Lines: Peripheral Diet: N.p.o. Plan: ABG 7.14/9/132 on 4 L. Given that the pH is greater than 6.9, no indication for bicarb Strict in and out Continue with insulin drip, important not to drop blood sugar greater than 100/h Patient will need diabetic education Continue to monitor BMP every 4 hours along with mag and Phos I have personally spent 58 minutes of critical care time in the direct management of this patient. This is a life/limb threatening event. This includes time spent evaluating patient, direct bedside care, chart review, placing orders, interpretation of diagnostic studies, discussion with consultants, patient, and family members, as well as other required patient management activities. This time is exclusive of all separately billable procedures, and teaching time and separate from and in addition to any other critical care service time. History of Present Illness History of Present Illness 57-year-old female presented to hospital with generalized lethargy Past medical history: Diabetes, hypertension, dyslipidemia Patient was found to have DKA and thus sent to ICU for further management At the time of examination patient's was in the room Patient's heart rate was in the 80s, systolic blood pressure in the 110, respiratory rate in the high teens to low 20s Patient stated that she was not feeling well for approximately 2 weeks. She had noticed that her sugars were running around 500,2 weeks ago but she thought that it is because of having old strips. She tried to get an appointment with primary care but unfortunately was not able to. She was also given doxycycline as well as prednisone for sinusitis. On asking whether he she had any fever or any purulent drainage. She denied. Was nauseous and threw up while coming to the hospital. None since then No abdominal pain No headache, no dizziness No dysuria, no diarrhea No chest pain Social history: Lifetime non-smoker. Works as a business consult Dog and cats at home No personal or family history of asthma History of lung cancer in the family Allergies Allergy/AdvReac Type Severity Reaction Status Date / Time No Known Allergies Allergy Verified 06/05/23 09:10 [id number] Allergy Unknown Unknown Uncoded 06/05/23 09:10 [id number] Allergy Unknown Unknown Uncoded 06/05/23 09:10 N Allergy Unknown Unknown Uncoded 06/05/23 09:10 Home Medications Medication Instructions Recorded Confirmed Type atorvastatin 20 mg tablet 20 mg PO HS 06/05/23 06/05/23 History doxycycline monohydrate 100 mg 100 mg PO BID 06/05/23 06/05/23 History tablet hydrochlorothiazide 25 mg tablet 25 mg PO QAM 06/05/23 06/05/23 History lisinopril 40 mg tablet 40 mg PO QAM 06/05/23 06/05/23 History metformin 500 mg tablet,extended 1,000 mg PO BID 06/05/23 06/05/23 History release 24 hr Patient History Social History Smoking Status: Never smoker Hx Alcohol Use: No Hx Substance Use: No Preferred Language: German Communication Ability: Effective Farm Hand Required: No Beliefs That Will Affect Care: None Current Living Situation: Spouse Other Information That Helps Us Care for You: No Feels Safe at Home: Yes Safety Concerns: Feels Safe At This Time Assistive Devices: None Review of Systems 2 Review of Systems: All systems reviewed & are unremarkable except as noted in HPI & below Physical Exam 2 Physical Exam: Constitutional: No acute distress HEENT: EOMI, PERRLA Respiratory system: Good air entry bilaterally, no wheeze, no rhonchi, mild crackles bilateral lower lobes CVS: S1-S2 positive, no murmurs or gallops Abdomen: Soft, nontender, nondistended, positive bowel sounds x4 Extremities: +2 pulses bilaterally radialis/ dorsalis pedis, no cyanosis, no edema Neuro: Awake alert oriented x3 Psych: Normal mood and affect G/U: No Elias Skin: no rashes, warm and dry Lymphatic: no cervical or axillary lymphadenopathy Results & Data Results & Data Vital Signs (Past 12 Hours) Vital Signs Temp Pulse Resp BP Pulse Ox O2 Del Method 06/05/23 09:30 83 19 118/63 100 06/05/23 09:18 82 20 124/70 100 06/05/23 08:18 82 100 Room Air 06/05/23 08:17 87 06/05/23 08:14 88 126/75 06/05/23 08:04 36.0 C L 92 H 20 95/61 L 100 Room Air Laboratory Results 06/05/23 08:15 06/05/23 08:15 Coding Level of Care Code 43338 CRITICAL CARE 1ST 30-74M Diagnoses Vomiting R11.10 Nausea presence: unspecified Vomiting type: unspecified Metabolic acidosis E87.20 DKA (diabetic ketoacidosis) E13.10 Diabetes mellitus complication detail: without coma Diabetes mellitus type: other specified (including JEANMARIE) TRINA (acute kidney injury) N17.9 Hypertension I10 Dyslipidemia E78.5 (1) Vomiting Nausea presence: unspecified Vomiting type: unspecified Qualified Code(s): R 11.10 - Vomiting, unspecified (3) DKA (diabetic ketoacidosis) Diabetes mellitus complication detail: without coma Diabetes mellitus type: o ther specified (including JEANMARIE) Qualified Code(s): E13.10 - Other specified diabetes mellitus with ketoacidosis without coma
[2023-06-05] MEDS ORDERED: PLASMA LYTE A IV SCH (10:15)
[2023-06-05] MEDS ORDERED: POTASSIUM CHLORIDE IV SCH (10:15)
--- NOTE | 2023-06-05 10:27 | History & Physical Report ---
Date of Service June 05, 2023 Assessment & Plan (1) DKA (diabetic ketoacidosis): Plan: DKA Anion gap metabolic acidosis Nausea, vomiting TRINA Hyponatremia secondary to above H/O DM II Hold p.o. metformin No obvious signs of infection Continue IV insulin drip Monitor and replace electrolytes as needed Continue IV fluids N.p.o. for now Continue doxycycline for recent URI Avoid nephrotoxic agents as able Update HbA1c Hyperkalemia Improved with IV fluids Monitor HTN On lisinopril, HCTZ given hypotension Monitor BP Hyperlipidemia On statin DVT Px: Lovenox SQ Code Status Full Code History of Present Illness Chief Complaint: DKA Primary Care Provider: NO PCP Patient is a 57-year-old female with history of diabetes mellitus, hypertension, hyperlipidemia, paroxysmal tachycardia and other comorbidities presents with history of worsening shortness of breath associated with feeling groggy since yesterday. Patient is a poor historian secondary to respiratory distress. Most of the history is obtained from patient's family at bedside. Patient apparently has been recovering from URI since 5 days duration. She is currently on doxycycline and completed 5-day course of prednisone. She admits to noticing her blood glucose levels elevated which she thought to be secondary to steroid use but could not determine how high as the machine could not read. She also has been very thirsty since 3 days duration. She admits to having dizziness, poor appetite, cough with whitish expectoration since 2 days duration. She has been taking her medications regularly. Reports having nausea, vomiting since yesterday. Denies any history of chest pain, palpitations, pedal edema, h emoptysis, fever, fall, syncope, headache, change in vision, abdominal pain, blood in stools, diarrhea, dysuria, hematuria. Allergies Allergy/AdvReac Type Severity Reaction Status Date / Time No Known Allergies Allergy Verified 06/05/23 09:10 [id number] Allergy Unknown Unknown Uncoded 06/05/23 09:10 [id number] Allergy Unknown Unknown Uncoded 06/05/23 09:10 N Allergy Unknown Unknown Uncoded 06/05/23 09:10 Home Medications Medication Instructions Recorded Confirmed Type atorvastatin 20 mg tablet 20 mg PO HS 06/05/23 06/05/23 History doxycycline monohydrate 100 mg 100 mg PO BID 06/05/23 06/05/23 History tablet hydrochlorothiazide 25 mg tablet 25 mg PO QAM 06/05/23 06/05/23 History lisinopril 40 mg tablet 40 mg PO QAM 06/05/23 06/05/23 History metformin 500 mg tablet,extended 1,000 mg PO BID 06/05/23 06/05/23 History release 24 hr Past Med/Surg History Medical History DM (diabetes mellitus) in Family History Father Diabetes Social History Smoking Status: Never smoker Hx Alcohol Use: Yes Alcohol type: wine Hx Substance Use: No Preferred Language: Vietnamese Communication Ability: Effective Flour Distributor Required: No Beliefs That Will Affect Care: None Current Living Situation: Spouse Other Information That Helps Us Care for You: No Feels Safe at Home: Yes Safety Concerns: Feels Safe At This Time Assistive Devices: None Review of Systems Review of Systems: All systems reviewed & are unremarkable except as noted in HPI & below Physical Exam Physical Exam: Physical Exam: Vitals signs as noted above General Appearance:Moderately built and nourished, mild respiratory distress Head: normocephalic, Atraumatic Eyes: normal inspection, EOMI Neck: supple, Trachea midline Respiratory/Chest: Normal breath sounds, CTA, No accessory muscle use Cardiovascular: S1, S2, No murmur Abdomen/GI:Soft, Non tender, Bowel sounds present Extremities/Musculoskeletal:normal inspection, no edema Neurologic/Psych:AAOX3, grossly no focal neurological deficits Skin: normal color, warm Results & Data Results & Data Vital Signs (Past 12 Hours) Vital Signs Temp Pulse Resp BP Pulse Ox O2 Del Method 06/05/23 09:30 83 19 118/63 100 06/05/23 09:18 82 20 124/70 100 06/05/23 08:18 82 100 Room Air 06/05/23 08:17 87 06/05/23 08:14 88 126/75 06/05/23 08:04 36.0 C L 92 H 20 95/61 L 100 Room Air Laboratory Results Short CBC 06/05/23 Range/Units 08:15 WBC 7.82 (4.8-10.8) K/ul Hgb 15.1 (12.0-16.0) g/dl Hct 46.3 (37.0-47.0) % Plt Count 374 (130-400) K/uL BMP 06/05/23 06/05/23 06/05/23 08:15 09:44 10:30 Sodium 127 L 131 L Potassium 5.2 H 5.1 Chloride 84 L 92 L Carbon Dioxide 7 L* 8 L* BUN 77 H 75 H Creatinine 2.71 H 2.40 H D Glucose 859 H* 745 H* 696 H* Calcium 9.8 9.2 06/05/23 12:51 Sodium 135 L Potassium 4.4 Chloride 99 Carbon Dioxide 7 L* BUN 69 H Creatinine 2.03 H D Glucose 492 H* Calcium 8.5 L Liver Function 06/05/23 Range/Units 08:15 Total Bilirubin 0.6 (0.2-1.0) mg/dl AST 10 L (13-39) U/L ALT 25 (7-52) U/L Alkaline Phosphatase 99 (34-104) U/L Albumin 4.4 (3.4-5.0) gm/dl Urine 06/05/23 Range/Units 12:40 Urine Color Yellow Urine Appearance Clear (Clear) Urine pH 5.0 (4.5-7.5) Ur Specific [place] 1.024 (1.000-1.030) Urine Protein Negative (Negative) Urine Glucose (UA) 3+ H (Negative) Diagnostic Findings CXR:No acute cardiopulmonary findings. ECG Additional Comments: EKG: NSR, nonspecific ST abnormality (1) DKA (diabetic ketoacidosis) Diabetes mellitus complication detail: without coma Diabetes mellitus type: other specified (including JEANMARIE) Qualified Code(s): E13.10 - Other specified diabetes mellitus with ketoacidosis without coma
[2023-06-05 10:33] LABS: INR 0.9 (0.9-1.1); Prothrombin Time 10.3 Seconds (9.0-12.0)
[2023-06-05 11:30] LABS: BUN Creatinine Ratio 31.3 (10-20); Calcium 9.2 mg/dl (8.6-10.3); Creatinine Clr Calc Pharmacy 28.2 ml/min; Est GFR (African American) 25.1 ml/min; Est GFR (Non-African American) 21.7 ml/min; Potassium 5.1 mmol/L (3.5-5.1)
[2023-06-05] MEDS ORDERED: POTASSIUM CHLORIDE 40 MEQ in PLASMA-LYTE A 1,000 ML IV SCH (11:30)
[2023-06-05] MEDS ORDERED: INSULIN ASPART PER UNIT CHARGE SC SCH (11:30)
--- NOTE | 2023-06-05 12:03 | Electrocardiogram Report ---
Test Reason : Blood Pressure : / mmHG Vent. Rate : 083 BPM Atrial Rate : 083 BPM P-R Int : 156 ms QRS Dur : 084 ms QT Int : 378 ms P-R-T Axes : 069 058 035 degrees QTc Int : 444 ms Normal sinus rhythm Nonspecific ST abnormality Abnormal ECG No previous ECGs available Confirmed by Alexander Kulkarni ([id number]) on 06/05/2023 12:03:10 PM Referred By: Confirmed By:Alexander Kulkarni
[2023-06-05 12:21] LABS: Adenovirus PCR Not Detected (NotDetected); Bordetella parapertussis PCR Not Detected (NotDetected); Bordetella pertussis PCR Not Detected (NotDetected); Chlamydia pneumoniae PCR Not Detected (NotDetected); Coronavirus 229E PCR Not Detected (NotDetected); Coronavirus CoV-2 (COVID19)PCR Not Detected (NotDetected); Coronavirus HKU1 PCR Not Detected (NotDetected); Coronavirus NL63 PCR Not Detected (NotDetected); Coronavirus OC43PCR Not Detected (NotDetected); Human Metapneumovirus PCR Not Detected (NotDetected); Influenza A PCR Not Detected (NotDetected); Influenza B PCR Not Detected (NotDetected); Mycoplasma pneumoniae PCR Not Detected (NotDetected); Parainfluenza Virus 1 PCR Not Detected (NotDetected); Parainfluenza Virus 2 PCR Not Detected (NotDetected); Parainfluenza Virus 3 PCR Not Detected (NotDetected); Parainfluenza Virus 4 PCR Not Detected (NotDetected); Respiratory Syncytial VirusPCR Not Detected (NotDetected); Rhinovirus/Enterovirus PCR Not Detected (NotDetected)
[2023-06-05] MEDS ORDERED: PENDING 1/2NSS+20mEq KCL IVF SCH (12:24)
[2023-06-05] MEDS ORDERED: INSULIN REGULAR 250 UNITS in SODIUM CHLORIDE 0.9% 247.5 ML IV SCH (12:24)
[2023-06-05] MEDS ORDERED: ICU Protocol for HYPERglycemia SCH (12:24)
[2023-06-05] MEDS ORDERED: PHARMACY GLYCEMIC MGMT CONSULT PRN (12:24)
[2023-06-05] MEDS ORDERED: PLASMA-LYTE A 1,000 ML IV SCH (12:24)
[2023-06-05] MEDS: INSULIN ASPART PER UNIT CHARGE SC SCH ×3 (12:33→19:30)
[2023-06-05] MEDS ORDERED: GLUCAGON FOR INJ 1 MG VIAL IM PRN (13:00)
[2023-06-05 13:26] LABS: Appearance Urine Clear (Clear); Bilirubin Urine Negative (Negative); Blood Urine Negative (Negative); Color Urine Yellow; Glucose Urine UA 3+ (Negative); Ketones Urine 4+ (Negative); Leukocyte Esterase Urine Negative (Negative); Nitrite Urine Negative (Negative); Protein Urine Negative (Negative); Specific Gravity Urine 1.024 (1.000-1.030); Urobilinogen Urine Negative (Negative)
[2023-06-05] MEDS ORDERED: INFLUENZA VIRUS QUADRIVALENT VACCINE (IIV4) 0.5 ML SYR IM ONE (13:35)
[2023-06-05] MEDS ORDERED: PNEUMOCOCCAL VACCINE (PCV20) 20-VAL CONJ-DIP CRM/PF 0.5 ML SYR IM ONE (13:35)
[2023-06-05 13:45] LABS: Calcium 8.5 mg/dl (8.6-10.3); Creatinine Clr Calc Pharmacy 33.4 ml/min; Est GFR (African American) 30.8 ml/min; Est GFR (Non-African American) 26.5 ml/min; Magnesium 2.8 mg/dl (1.7-2.4); Phosphorus 4.4 mg/dl (2.5-4.9); Potassium 4.4 mmol/L (3.5-5.1)
[2023-06-05 14:01] LABS: Estimated Average Glucose > 438 mg/dl; Hemoglobin A1C > 16.9 % (4.5-5.6)
[2023-06-05] MEDS ORDERED: Nursing to Pharmacy Communication SCH (14:15)
--- NOTE | 2023-06-05 14:32 | Pharmacy Report ---
Pharmacy Glycemic Short Note 2 - Date of Service June 05, 2023 - Glycemic Short BSG Results (Last 24 hours): 06/05/23 06/05/23 06/05/23 08:08 08:15 08:21 Glucose 859 H* POC Glucose > 600 H* POC Glucose (other) > 700 H* 06/05/23 06/05/23 06/05/23 09:44 10:16 10:30 Glucose 745 H* 696 H* POC Glucose > 600 H* POC Glucose (other) 06/05/23 06/05/23 06/05/23 12:51 13:01 14:05 Glucose 492 H* POC Glucose 459 H* 378 H* POC Glucose (other) OUTPATIENT ANTIDIABETIC REGIMEN: * Metformin 1 g PO BIDM HbA1c: >16.9% (06/05/23) ASSESSMENT: * EG is a 57 year old female who presented to ED this morning w/ persistent vomiting and shortness of breath * Found to be in DKA on presentation * BSG > 800 mg/dL * Anion gap: 36 * Carbon dioxide: 7 mmol/L * ABG pH: 7.14 * IV fluids (Plasmalyte + 40 KCl @250 mL/hr) and insulin infusion initiated in ED * Will continue insulin infusion at least for the next 24 hours, which should be helpful in determining patient's insulin needs * Patient will require insulin regimen at time of discharge * SCr improving w/ IV fluids PLAN FOR INPATIENT GLYCEMIC CONTROL: * Hold outpatient oral diabetes medications * Continue insulin infusion - RN to adjust per insulin adjustment calculator
[2023-06-05 17:02] LABS: BUN Creatinine Ratio 35.1 (10-20); Calcium 8.8 mg/dl (8.6-10.3); Creatinine Clr Calc Pharmacy 35.5 ml/min; Est GFR (African American) 33.1 ml/min; Est GFR (Non-African American) 28.6 ml/min; Magnesium 2.6 mg/dl (1.7-2.4); Phosphorus 2.6 mg/dl (2.5-4.9)
[2023-06-05] MEDS: D5W AND 1/2NSS + 20MEQ KCL 20 MEQ/1,000 ML BAG IV SCH ×2 (19:50→23:49)
[2023-06-05] MEDS: PENDING D5 1/2NS+20mEq KCL IVF SCH ×2 (19:58→19:59)
[2023-06-05] MEDS: ATORVASTATIN 20 MG TAB PO SCH (20:42)
[2023-06-05] MEDS: DOXYCYCLINE HYCLATE 100 MG CAP PO SCH (20:42)
[2023-06-05 21:22] LABS: BUN Creatinine Ratio 35.3 (10-20); Calcium 8.7 mg/dl (8.6-10.3); Creatinine Clr Calc Pharmacy 39.2 ml/min; Est GFR (African American) 37.3 ml/min; Est GFR (Non-African American) 32.2 ml/min; Magnesium 2.7 mg/dl (1.7-2.4); Phosphorus 2.3 mg/dl (2.5-4.9); Potassium 4.3 mmol/L (3.5-5.1)
[2023-06-05] MEDS ORDERED: PLASMA-LYTE A 500 ML IV ONE (23:27)
[2023-06-06 01:58] LABS: BUN Creatinine Ratio 33.1 (10-20); Creatinine Clr Calc Pharmacy 43.2 ml/min; Est GFR (Non-African American) 36.2 ml/min; Magnesium 2.4 mg/dl (1.7-2.4); Phosphorus 1.5 mg/dl (2.5-4.9); Potassium 4.2 mmol/L (3.5-5.1)
[2023-06-06] MEDS ORDERED: SODIUM PHOSPHATE 3 MMOL/1 ML 5 ML VIAL IV ONE (02:06)
[2023-06-06] MEDS ORDERED: SODIUM PHOSPHATE 15 MMOL in SODIUM CHLORIDE 0.9% 250 ML IV ONE (02:30)
[2023-06-06] MEDS: D5W AND 1/2NSS + 20MEQ KCL 20 MEQ/1,000 ML BAG IV SCH ×2 (04:03→08:07)
[2023-06-06 04:54] LABS: Albumin Globulin Ratio 1.5 (0.9-2); BUN Creatinine Ratio 32.1 (10-20); Bilirubin,Total 0.4 mg/dl (0.2-1.0); Calcium 7.8 mg/dl (8.6-10.3); Creatinine Clr Calc Pharmacy 49.5 ml/min; Est GFR (African American) 49.5 ml/min; Est GFR (Non-African American) 42.7 ml/min; Magnesium 2.4 mg/dl (1.7-2.4); Potassium 3.8 mmol/L (3.5-5.1)
[2023-06-06 05:02] LABS: Hematocrit (blood only) 29.4 % (37.0-47.0); Hemoglobin 10.4 g/dl (12.0-16.0); Mean Corpuscular Hemoglobin 28.7 pg (25.0-34.0); Mean Corpuscular Hgb Conc 35.4 g/dL (32.0-36.0); Mean Corpuscular Volume 81.2 fL (80.0-100.0); Mean Platelet Volume 9.7 fL (9.4-12.4); Platelet Count 171 K/uL (130-400); Platelet Estimate Normal (Normal); RDW Coefficient of Variation 12.9 % (11.5-14.5); RDW Standard Deviation 38.2 fL (36.4-46.3); Red Blood Count 3.62 M/uL (4.20-5.40); White Blood Count 7.26 K/ul (4.8-10.8)
--- NOTE | 2023-06-06 07:54 | Critical Care Progress Note ---
Date of Service June 06, 2023 Assessment & Plan (1) Vomiting: (2) Metabolic acidosis: (3) DKA (diabetic ketoacidosis): (4) TRINA (acute kidney injury): (5) Hypertension: (6) Dyslipidemia: Plan Reason Critically Ill: 57-year-old female with past medical history of diabetes presents to the hospital with generalized fatigue. Was found to be in DKA. Sent for ICU for further management Neuro - [facility] ICU: Negative Cardiac - -- Hypotension Responded to fluids Continue to monitor and keep MAP greater than 65 Random cortisol 19 Patient was on prednisone 50 mg only for 5 days prior to coming to the hospital -- History of hypertension On lisinopril and hydrochlorothiazide at home Respiratory - -- No active issues GI - -- Nausea and vomiting --> resolved Likely secondary to DKA Symptomatic treatment Mildly elevated lipase which could be seen in DKA RENAL/LYTES - -- TRINA --> improving Likely prerenal from dehydration Monitor BUN/creatinine Avoid nephrotoxic medications Strict ins and outs -- S/p HAGMA Delta-delta: 1.2, as needed Likely sec to ketoacidosis with lactic acidosis Monitor - Strict in and out ENDO - -- Diabetic ketoacidosis Continue with insulin drip until anion gap closes Decreasing blood glucose no more than 100 in an hour Replace potassium IV when potassium level between 3.3-5.3 BMP every 4 hours Continue with IV fluids HbA1c> 16.9 --History of diabetes Follow-up HbA1c HEME - --Normocytic anemia Monitor H&H ID - -- No source of infection UA clean, chest x-ray clean -- Was being treated for sinusitis with doxycycline Complete the course --Prophylaxis VTE: Lovenox GI: None Lines: Peripheral Diet: Diabetic diet Plan: In/out: +5 L, urine output 1400 mL Anion gap is closed. We will try to bridge to subcu insulin Patient blood pressure is on the lower side although she is not symptomatic. It is lowest when she is sleeping, while awake awake map is in the high 60s We will give final mL bolus Okay to start diabetic diet. Complete the course of doxycycline. Patient got Rocephin yesterday, will give another dose today and then stop. Patient will need diabetic education given the HbA1c greater than 16.9 Potassium and phosphorus being replaced I have personally spent 35 minutes of critical care time in the direct management of this patient. This is a life/limb threatening event. This includes time spent evaluating patient, direct bedside care, chart review, placing orders, interpretation of diagnostic studies, discussion with consultants, patient, and family members, as well as other required patient management activities. This time is exclusive of all separately billable procedures, and teaching time and separate from and in addition to any other critical care service time. Admission and Anticipated Discharge Date Admission Date: June 05, 2023 Subjective Patient seen and examined at bedside. No acute distress. Does complain of some heaviness in the frontal sinus area. Denies any nausea or vomiting Overall she feels better compared to yesterday but still lethargic No headache, no blurry vision No chest pain, no shortness of breath Has been afebrile Review of Systems 2 Review of Systems: All systems reviewed & are unremarkable except as noted in Subjective Physical Exam 2 Physical Exam: Constitutional: No acute distress HEENT: EOMI, PERRLA Respiratory system: Good air entry bilaterally, no wheeze, no rhonchi, mild crackles bilateral lower lobes CVS: S1-S2 positive, no murmurs or gallops Abdomen: Soft, nontender, nondistended, positive bowel sounds x4 Extremities: +2 pulses bilaterally radialis/ dorsalis pedis, no cyanosis, no edema Neuro: Awake alert oriented x3 Psych: Normal mood and affect G/U: No Elias Skin: no rashes, warm and dry Lymphatic: no cervical or axillary lymphadenopathy Results & Data Results & Data Vital Signs (Past 12 Hours) Vital Signs Temp Pulse Resp BP Pulse Ox O2 Del Method 06/06/23 07:00 91/54 L 06/06/23 07:00 67 13 99 06/06/23 06:35 105/60 06/06/23 06:35 70 15 100 06/06/23 06:30 67 22 99 06/06/23 06:12 69 14 96 06/06/23 06:12 71/39 L 06/06/23 06:00 69 15 96 06/06/23 06:00 77/46 L 06/06/23 05:30 83/48 L 06/06/23 05:30 71 14 96 06/06/23 05:00 90/53 L 06/06/23 05:00 69 15 98 06/06/23 04:30 88/52 L 06/06/23 04:30 72 15 96 06/06/23 04:02 71 14 96 06/06/23 04:02 85/48 L 06/06/23 04:00 36.9 C 06/06/23 04:00 71 16 96 06/06/23 04:00 79/45 L 06/06/23 03:30 75 13 93 06/06/23 03:30 96/57 L 06/06/23 03:00 86/56 L 06/06/23 03:00 73 17 97 06/06/23 02:30 96/58 L 06/06/23 02:30 74 16 98 06/06/23 02:00 91/50 L 06/06/23 02:00 74 16 97 06/06/23 01:30 73 15 98 06/06/23 01:30 87/56 L 06/06/23 01:00 90/56 L 06/06/23 01:00 75 16 97 06/06/23 00:30 75 19 99 06/06/23 00:30 92/58 L 06/06/23 00:00 74 15 97 Room Air 06/06/23 00:00 94/59 L 06/06/23 00:00 36.4 C L 06/06/23 00:00 74 06/05/23 23:30 117/72 06/05/23 23:30 73 15 99 06/05/23 23:04 96/47 L 06/05/23 23:04 81 19 98 06/05/23 23:00 72 13 96 06/05/23 23:00 74/43 L 06/05/23 22:30 74 14 96 06/05/23 22:00 86/48 L 06/05/23 22:00 76 15 97 06/05/23 21:00 73 16 99 06/05/23 21:00 95/51 L 06/05/23 20:16 86/53 L 06/05/23 20:16 74 19 99 Room Air 06/05/23 20:00 36.9 C 06/05/23 20:00 82/53 L 06/05/23 20:00 76 17 99 Laboratory Results 06/06/23 04:17 06/06/23 04:17 Coding Level of Care Code 06047 CRITICAL CARE 1ST 30-74M Diagnoses Vomiting R11.10 Nausea presence: unspecified Vomiting type: unspecified Metabolic acidosis E87.20 DKA (diabetic ketoacidosis) E13.10 Diabetes mellitus complication detail: without coma Diabetes mellitus type: other specified (including JEANMARIE) TRINA (acute kidney injury) N17.9 Hypertension I10 Dyslipidemia E78.5 (1) Vomiting Nausea presence: unspecified Vomiting type: unspecified Qualified Code(s): R 11.10 - Vomiting, unspecified (3) DKA (diabetic ketoacidosis) Diabetes mellitus complication detail: without coma Diabetes mellitus type: o ther specified (including JEANMARIE) Qualified Code(s): E13.10 - Other specified diabetes mellitus with ketoacidosis without coma
[2023-06-06] MEDS: DOXYCYCLINE HYCLATE 100 MG CAP PO SCH ×2 (08:08→20:45)
[2023-06-06] MEDS: INSULIN ASPART PER UNIT CHARGE SC SCH ×5 (08:08→23:38)
[2023-06-06 08:45] LABS: BUN Creatinine Ratio 29.7 (10-20); Calcium 7.6 mg/dl (8.6-10.3); Creatinine Clr Calc Pharmacy 52.9 ml/min; Est GFR (African American) 53.7 ml/min; Est GFR (Non-African American) 46.4 ml/min; Magnesium 2.3 mg/dl (1.7-2.4); Phosphorus 1.7 mg/dl (2.5-4.9); Potassium 3.7 mmol/L (3.5-5.1)
[2023-06-06] MEDS ORDERED: LANTUS PER UNIT CHARGE SC ONE ×3 (08:45→14:30)
[2023-06-06] MEDS ORDERED: ENOXAPARIN INJ 30 MG/0.3 ML SYR SQ SCH (09:00)
[2023-06-06] MEDS ORDERED: cefTRIAXone SODIUM 2,000 MG in DEXTROSE 5 % MINI-B 50 ML IV STA (09:32)
[2023-06-06] MEDS ORDERED: POTASSIUM PHOSPHATE 15 MMOL in SODIUM CHLORIDE 0.9% 250 ML IV ONE (09:45)
[2023-06-06] MEDS ORDERED: PLASMA-LYTE A 500 ML IV ONE (09:45)
[2023-06-06] MEDS: INSULIN REGULAR 250 UNITS in SODIUM CHLORIDE 0.9% 247.5 ML IV SCH (09:54)
[2023-06-06] MEDS ORDERED: ACETAMINOPHEN 325 MG TAB PO PRN (12:10)
--- NOTE | 2023-06-06 14:32 | Pharmacy Report ---
Pharmacy Glycemic Short Note 2 - Date of Service June 06, 2023 - Glycemic Short BSG Results (Last 24 hours): 06/05/23 06/05/23 06/05/23 14:59 16:00 16:32 Glucose 294 H POC Glucose 351 H* 289 H 06/05/23 06/05/23 06/05/23 17:01 17:58 19:16 Glucose POC Glucose 228 H 205 H 149 H 06/05/23 06/05/23 06/05/23 19:53 20:21 20:35 Glucose 185 H POC Glucose 129 H 153 H 06/05/23 06/05/23 06/05/23 21:35 22:37 23:36 Glucose POC Glucose 214 H 260 H 206 H 06/06/23 06/06/23 06/06/23 00:26 00:34 01:23 Glucose Cancelled 259 H POC Glucose 236 H 06/06/23 06/06/23 06/06/23 01:26 02:32 03:38 Glucose POC Glucose 263 H 213 H 214 H 06/06/23 06/06/23 06/06/23 04:17 04:37 06:38 Glucose 205 H POC Glucose 213 H 174 H 06/06/23 06/06/23 06/06/23 08:04 08:38 10:43 Glucose 165 H POC Glucose 155 H 171 H 06/06/23 06/06/23 06/06/23 11:42 12:40 13:44 Glucose POC Glucose 216 H 204 H 211 H OUTPATIENT ANTIDIABETIC REGIMEN: * Metformin 1 g PO BIDM HbA1c: >16.9% (06/05/23) ASSESSMENT: 06/06/23: * Labs improved this morning, anion gap closed * Discussed w/ site foreman and will begin transition to SC basal/bolus today * IV fluids containing dextrose discontinued and diet ordered * Originally aiming for 0.5-0.8 unit/kg/day of insulin w/ 25 units of basal this morning, but BSGs continued to trend up this afternoon despite increasing insulin infusion rates (10.7 units/hr at time of this note). Will give additional 15 units of insulin to equal full weight-based stress of 3 basal dosing (~0.5 unit/kg). 06/05/23: * EG is a 57 year old female who presented to ED this morning w/ persistent vomiting and shortness of breath * Found to be in DKA on presentation * BSG > 800 mg/dL * Anion gap: 36 * Carbon dioxide: 7 mmol/L * ABG pH: 7.14 * IV fluids (Plasmalyte + 40 KCl @250 mL/hr) and insulin infusion initiated in ED * Will continue insulin infusion at least for the next 24 hours, which should be helpful in determining patient's insulin needs * Patient will require insulin regimen at time of discharge * SCr improving w/ IV fluids PLAN FOR INPATIENT GLYCEMIC CONTROL: * Hold outpatient oral diabetes medications * Will transition insulin infusion to SC basal/bolus this afternoon * Basal insulin * Lantus 25 units SC x 1 this morning * Lantus 15 units SC x 1 this afternoon * Reassess in AM * Bolus insulin * NovoLog per scale ACHS or Q6hrs while NPO * Goal Range: Low 110 mg/dL - High 140 mg/dL * Correction Factor: 20 mg/dL/unit * Nutritional / Prandial insulin per carb ratio of 1 unit per 6 grams CHO consumed * ,04 checks with same parameters
[2023-06-06] MEDS ORDERED: STOP ORDER: INSULIN INFUSION ONE (16:30)
--- NOTE | 2023-06-06 17:19 | Hospitalist Progress Note ---
Date of Service June 06, 2023 Assessment & Plan (1) DKA (diabetic ketoacidosis): Plan: per admitting service notes with addendum: DKA Anion gap metabolic acidosis Nausea, vomiting TRINA Hyponatremia secondary to above H/O DM II Hold p.o. metformin No obvious signs of infection Continue IV insulin drip Monitor and replace electrolytes as needed Continue IV fluids N.p.o. for now Continue doxycycline for recent URI Avoid nephrotoxic agents as able Update HbA1c: Greater than 16 06/06 Gap closed Transition to insulin subcutaneous No other focus of infection at this point Continue p.o. antibiotic inclusion special educator consulted Hyperkalemia Improved with IV fluids Monitor HTN On lisinopril, HCTZ given hypotension Monitor BP BP still on the lower side monitor Hyperlipidemia On statin DVT Px: Lovenox SQ Code Status Full Code Admission and Anticipated Discharge Date Admission Date: June 05, 2023 Subjective Follow-up for DKA, etc. Seen resting in bed, comfortable, not in distress Sleeping but easily awakened States she feels very tired but feels improving Denies cough, chest pain, shortness of breath, sore throat, Lamberto pain, problems with urination or bowel movement No other new symptoms Review of Systems Review of Systems: all noted and negative except for above Physical Exam Physical Exam: General- oriented x 3, not in distress, speaks in sentences with no effort or accessory muscle use Eyes- anicteric Neck- no JVD Lungs- clear breath sounds bilaterally, no rales/wheezes Heart- normal rate, regular rhythm; no murmurs Abdomen- normal bowel sounds, nondistended, soft, nontender Extremities- no pretibial edema, no calf tenderness Neuro- alert, oriented x 3; no gross focal neurologic deficits Skin- warm & dry Results & Data Results & Data Vital Signs (Past 12 Hours) Vital Signs Temp Pulse Resp BP Pulse Ox 06/06/23 16:00 74 17 96 06/06/23 16:00 109/80 06/06/23 15:30 117/68 06/06/23 15:30 73 17 96 06/06/23 15:00 79 22 97 06/06/23 14:34 83 16 95 06/06/23 14:00 89/48 L 06/06/23 14:00 87 19 06/06/23 13:30 88 21 06/06/23 13:30 83/47 L 06/06/23 13:28 87 17 97 06/06/23 13:28 83/50 L 06/06/23 13:14 37 C 06/06/23 13:00 89 18 96 06/06/23 13:00 88/52 L 06/06/23 12:30 93/53 L 06/06/23 12:30 89 17 100 06/06/23 12:00 102/56 L 06/06/23 12:00 87 20 98 06/06/23 11:30 81 22 98 06/06/23 11:00 88/47 L 06/06/23 11:00 81 18 97 06/06/23 10:30 79 17 98 06/06/23 10:00 75 18 99 06/06/23 10:00 99/63 L 06/06/23 09:31 79/49 L 06/06/23 09:31 69 15 96 06/06/23 09:30 66 14 96 06/06/23 09:30 80/48 L 06/06/23 09:00 89/56 L 06/06/23 09:00 68 15 96 06/06/23 08:30 67 18 100 06/06/23 08:00 69 16 97 06/06/23 08:00 83/47 L 06/06/23 08:00 36.9 C 06/06/23 08:00 67 06/06/23 07:32 82/48 L 06/06/23 07:32 68 14 97 06/06/23 07:30 78/48 L 06/06/23 07:30 69 13 96 06/06/23 07:00 91/54 L 06/06/23 07:00 67 13 99 06/06/23 06:35 105/60 06/06/23 06:35 70 15 100 06/06/23 06:30 67 22 99 06/06/23 06:12 69 14 96 06/06/23 06:12 71/39 L 06/06/23 06:00 69 15 96 06/06/23 06:00 77/46 L 06/06/23 05:30 83/48 L 06/06/23 05:30 71 14 96 all noted and reviewed including below (1) DKA (diabetic ketoacidosis) Diabetes mellitus complication detail: without coma Diabetes mellitus type: other specified (including JEANMARIE) Qualified Code(s): E13.10 - Other specified diabetes mellitus with ketoacidosis without coma
[2023-06-06] MEDS ORDERED: SODIUM CHLORIDE 0.9% 1,000 ML IV ONE (19:24)
[2023-06-06] MEDS: ATORVASTATIN 20 MG TAB PO SCH (20:45)
[2023-06-06] MEDS ORDERED: dexAMETHasone 4 MG in SYRINGE 0 ML IV ONE (22:15)
--- NOTE | 2023-06-06 22:59 | Communication Note ---
Date of Service: June 06, 2023 Patient with recurrent hypotension despite IVF. AP Recurrent hypotension ? Possible adrenal insufficiency Recent outpatient prednisone course for respiratory tract infection Decadron 1 dose for possible adrenal insufficiency
[2023-06-06] MEDS ORDERED: ALBUMIN 25% 25 GM/100 ML VIAL IV ONE (23:15)
[2023-06-07] MEDS: INSULIN ASPART PER UNIT CHARGE SC SCH ×5 (03:49→20:24)
[2023-06-07] MEDS: ENOXAPARIN INJ 40 MG/0.4 ML SYR SQ SCH (08:10)
[2023-06-07] MEDS: DOXYCYCLINE HYCLATE 100 MG CAP PO SCH ×2 (08:11→19:50)
[2023-06-07] MEDS ORDERED: LANTUS PER UNIT CHARGE SC SCH ×2 (09:00→21:00)
[2023-06-07 09:38] LABS: Hematocrit (blood only) 30.9 % (37.0-47.0); Hemoglobin 10.4 g/dl (12.0-16.0); Immature Granulocytes # (auto) 0.03 K/uL (0.01-0.20); Immature Granulocytes % (auto) 0.8 %; Lymphocytes # (auto) 0.75 K/uL (1.20-3.40); Lymphocytes % (auto) 19.3 %; Mean Corpuscular Hemoglobin 28.3 pg (25.0-34.0); Mean Corpuscular Hgb Conc 33.7 g/dL (32.0-36.0); Mean Corpuscular Volume 84.2 fL (80.0-100.0); Monocytes # (auto) 0.16 K/uL (0.11-0.59); Monocytes % (auto) 4.1 %; Neutrophils # (auto) 2.94 K/uL (1.40-6.50); Neutrophils % (auto) 75.8 %; Platelet Count 108 K/uL (130-400); RDW Coefficient of Variation 13.1 % (11.5-14.5); Red Blood Count 3.67 M/uL (4.20-5.40); White Blood Count 3.88 K/ul (4.8-10.8)
[2023-06-07 10:15] LABS: Albumin Globulin Ratio 1.7 (0.9-2); Albumin Level 3.3 gm/dl (3.4-5.0); BUN Creatinine Ratio 22.9 (10-20); Bilirubin,Total 0.5 mg/dl (0.2-1.0); Calcium 8.3 mg/dl (8.6-10.3); Creatinine Clr Calc Pharmacy 64.6 ml/min; Est GFR (African American) 68.3 ml/min; Est GFR (Non-African American) 58.9 ml/min; Potassium 3.8 mmol/L (3.5-5.1); Total Protein 5.3 gm/dl (6.0-8.3)
--- NOTE | 2023-06-07 14:59 | Pharmacy Report ---
Pharmacy Glycemic Short Note 2 - Date of Service June 07, 2023 - Glycemic Short BSG Results (Last 24 hours): 06/06/23 06/06/23 06/06/23 15:42 16:29 20:05 Glucose POC Glucose 105 H 85 213 H 06/06/23 06/07/23 06/07/23 23:31 03:44 07:23 Glucose POC Glucose 140 H 211 H 179 H 06/07/23 06/07/23 09:03 11:17 Glucose 341 H* POC Glucose 244 H OUTPATIENT ANTIDIABETIC REGIMEN: * Metformin 1 g PO BIDM HbA1c: >16.9% (06/05/23) ASSESSMENT: 06/07/23: * Nuzhat received 61 units of insulin yesterday (40 were basal) plus insulin from drip. * She was transitioned off the drip yesterday and BSGs trended upwards. Fasting BSG this AM slightly above goal range even with Novolog correction overnight. Basal insulin increased by 20%. Plan to transition basal insulin administration to once daily at bedtime. Will allow for increased basal insulin tonight based on BSG. * She did receive dexamethasone 4mg IV last night for suspected adrenal insufficiency causing hypotension which is also contributing to the hyperglycemia. NovoLog parameters tightened for the rest of today. * prosthodontist/educator noted that the patient feels symptomatic if BSGs are too low due to her BSGs being so high normally, recommended increasing goal range to prevent, goal range adjusted. 06/06/23: * Labs improved this morning, anion gap closed * Discussed w/ center sales and service associate and will begin transition to SC basal/bolus today * IV fluids containing dextrose discontinued and diet ordered * Originally aiming for 0.5-0.8 unit/kg/day of insulin w/ 25 units of basal this morning, but BSGs continued to trend up this afternoon despite increasing insulin infusion rates (10.7 units/hr at time of this note). Will give additional 15 units of insulin to equal full weight-based stress of 3 basal dosing (~0.5 unit/kg). 06/05/23: * EG is a 57 year old female who presented to ED this morning w/ persistent vomiting and shortness of breath * Found to be in DKA on presentation * BSG > 800 mg/dL * Anion gap: 36 * Carbon dioxide: 7 mmol/L * ABG pH: 7.14 * IV fluids (Plasmalyte + 40 KCl @250 mL/hr) and insulin infusion initiated in ED * Will continue insulin infusion at least for the next 24 hours, which should be helpful in determining patient's insulin needs * Patient will require insulin regimen at time of discharge * SCr improving w/ IV fluids PLAN FOR INPATIENT GLYCEMIC CONTROL: * Hold outpatient oral diabetes medications * Basal insulin * Lantus 25 units SC BID (allow for 25 -35 units HS based on BSG to transition back to HS dosing) * Bolus insulin * NovoLog per scale ACHS or Q6hrs while NPO * Goal Range: Low 140 mg/dL - High 180 mg/dL * Correction Factor: 15 mg/dL/unit * Nutritional / Prandial insulin per carb ratio of 1 unit per 5 grams CHO consumed * checks with same parameters
[2023-06-07] MEDS: ATORVASTATIN 20 MG TAB PO SCH (19:50)
--- NOTE | 2023-06-07 20:32 | Hospitalist Progress Note ---
Date of Service June 07, 2023 Assessment & Plan (1) DKA (diabetic ketoacidosis): Plan: per admitting service notes with addendum: DKA Anion gap metabolic acidosis Nausea, vomiting TRINA Hyponatremia secondary to above H/O DM II Hold p.o. metformin No obvious signs of infection Continue IV insulin drip Monitor and replace electrolytes as needed Continue IV fluids N.p.o. for now Continue doxycycline for recent URI Avoid nephrotoxic agents as able Update HbA1c: Greater than 16 06/06 Gap closed Transition to insulin subcutaneous No other focus of infection at this point Continue p.o. antibiotic tobacco educator consulted 06/07 DKA resolved transitioned to insulin Lantus and insulin NovoLog tobacco educator on board Anticipate discharge to home tomorrow Hyperkalemia Improved with IV fluids Monitor HTN hold lisinopril, HCTZ given hypotension Monitor BP Hyperlipidemia On statin DVT Px: Lovenox SQ Code Status Full Code Admission and Anticipated Discharge Date Admission Date: June 05, 2023 Subjective Follow-up for DKA, etc. Seen sitting up in bed, comfortable, not in distress, obese. States she is feeling better overall Weakness is improving No abdominal pain, nausea vomiting, chest pain, shortness of breath, cough No other new symptoms nasal congestion improving Review of Systems Review of Systems: all noted and negative except for above Physical Exam Physical Exam: General- oriented x 3, not in distress, speaks in sentences with no effort or accessory muscle use Eyes- anicteric Neck- no JVD Lungs- clear breath sounds bilaterally, no rales/wheezes Heart- normal rate, regular rhythm; no murmurs Abdomen- normal bowel sounds, nondistended, soft, nontender Extremities- no pretibial edema, no calf tenderness Neuro- alert, oriented x 3; no gross focal neurologic deficits Skin- warm & dry Results & Data Results & Data Vital Signs (Past 12 Hours) Vital Signs Temp Pulse Pulse Resp BP Pulse Ox O2 Del Method 06/07/23 19:32 36.6 C 82 18 123/86 99 Room Air 06/07/23 16:35 36.6 C 74 18 149/92 H 98 Room Air 06/07/23 14:53 81 06/07/23 11:14 37.1 C 71 17 133/83 96 Room Air all noted and reviewed including below (1) DKA (diabetic ketoacidosis) Diabetes mellitus complication detail: without coma Diabetes mellitus type: other specified (including JEANMARIE) Qualified Code(s): E13.10 - Other specified diabetes mellitus with ketoacidosis without coma
[2023-06-08] MEDS: ENOXAPARIN INJ 40 MG/0.4 ML SYR SQ SCH (08:00)
[2023-06-08] MEDS: DOXYCYCLINE HYCLATE 100 MG CAP PO SCH (08:00)
[2023-06-08] MEDS: INSULIN ASPART PER UNIT CHARGE SC SCH ×4 (08:00→20:08)
--- NOTE | 2023-06-08 08:18 | Hospitalist Progress Note ---
Date of Service June 08, 2023 Assessment & Plan (1) DKA (diabetic ketoacidosis): Plan: per admitting service notes with addendum: DIABETES KETOACIDOSIS Usually on p.o. metformin Presented with anion gap metabolic acidosis in the setting of upper respiratory tract infection on doxycycline, prednisone course Nausea, vomiting A1c found to be more than 16 Patient placed on insulin drip, Resolved Transition to Lantus and insulin sliding Blood glucose still fluctuating, patient feeling dizzy today Insulin sliding scale, carb coverage loosened Pharmacy glycemic control consulted Tentative plan: Semglee 25 units at bedtime Humalog before meals and at bedtime based on most current sliding scale Metformin 1000 twice daily Please discuss with pharmacy glycemic control service prior to discharge Already completed course of doxycycline for possible sinusitis, Flonase started Serologic markers for type 1 diabetes ordered: Pending, follow-up TRINA HYPONATREMIA, HYPERKALEMIA Resolved HTN hold lisinopril, HCTZ given hypotension Monitor BP Hyperlipidemia On statin DVT Px: Lovenox SQ Disposition Discharge to home when medically stable Will need PCP follow-up Admission and Anticipated Discharge Date Admission Date: June 05, 2023 Subjective Follow-up for DKA, etc. Seen resting in bed, comfortable, not in distress States she is feeling dizzy, lightheaded this morning Also having some increased nasal congestion Minimal cough which is improving, no shortness of breath, no fevers or chills No other new symptom Review of Systems Review of Systems: all noted and negative except for above Physical Exam Physical Exam: General- oriented x 3, not in distress, speaks in sentences with no effort or accessory muscle use Eyes- anicteric Neck- no JVD Lungs- clear breath sounds bilaterally, no crackles, no wheezing noted Heart- normal rate, regular rhythm; no murmurs Abdomen- normal bowel sounds, nondistended, soft, nontender Extremities- no pretibial edema, no calf tenderness Neuro- alert, oriented x 3; no gross focal neurologic deficits Skin- warm & dry Results & Data Results & Data Vital Signs (Past 12 Hours) Vital Signs Temp Pulse Pulse Resp BP Pulse Ox O2 Del Method 06/08/23 08:14 36.4 C L 82 18 127/82 97 Room Air 06/08/23 04:05 36.7 C 67 16 123/75 97 Room Air 06/07/23 22:53 72 06/07/23 22:49 36.9 C 68 20 127/84 98 Room Air all noted and reviewed including below (1) DKA (diabetic ketoacidosis) Diabetes mellitus complication detail: without coma Diabetes mellitus type: other specified (including JEANMARIE) Qualified Code(s): E13.10 - Other specified diabetes mellitus with ketoacidosis without coma
[2023-06-08 08:19] LABS: Albumin Globulin Ratio 1.6 (0.9-2); Albumin Level 3.3 gm/dl (3.4-5.0); Bilirubin,Total 0.6 mg/dl (0.2-1.0); Calcium 8.7 mg/dl (8.6-10.3); Creatinine Clr Calc Pharmacy 77.4 ml/min; Est GFR (African American) 83.4 ml/min; Est GFR (Non-African American) 71.9 ml/min; Globulin 2.1 gm/dl (2.5-4.0); Phosphorus 2.1 mg/dl (2.5-4.9); Potassium 3.1 mmol/L (3.5-5.1); Total Protein 5.4 gm/dl (6.0-8.3)
[2023-06-08] MEDS ORDERED: POTASSIUM CHLORIDE CRTAB 20 MEQ TABCR PO STA (08:28)
[2023-06-08] MEDS: metFORMIN HCL ER 500 MG TABCR PO SCH ×2 (10:27→16:48)
[2023-06-08] MEDS ORDERED: metFORMIN HCL 500 MG TAB PO SCH (10:30)
[2023-06-08] MEDS: FLUTICASONE PROPIONATE NA SPR 16 GM BTL SCH ×2 (11:59→20:09)
[2023-06-08] MEDS: ATORVASTATIN 20 MG TAB PO SCH (20:09)
[2023-06-08] MEDS ORDERED: LANTUS PER UNIT CHARGE SC SCH ×2 (21:00)
[2023-06-09 07:52] LABS: Albumin Globulin Ratio 1.5 (0.9-2); Albumin Level 3.4 gm/dl (3.4-5.0); BUN Creatinine Ratio 14.3 (10-20); Bilirubin,Total 0.5 mg/dl (0.2-1.0); Calcium 8.9 mg/dl (8.6-10.3); Creatinine Clr Calc Pharmacy 69.9 ml/min; Est GFR (African American) 74.2 ml/min; Globulin 2.2 gm/dl (2.5-4.0); Magnesium 1.9 mg/dl (1.7-2.4); Phosphorus 2.8 mg/dl (2.5-4.9); Potassium 3.8 mmol/L (3.5-5.1); Total Protein 5.6 gm/dl (6.0-8.3)
[2023-06-09] MEDS: ENOXAPARIN INJ 40 MG/0.4 ML SYR SQ SCH (08:03)
[2023-06-09] MEDS: FLUTICASONE PROPIONATE NA SPR 16 GM BTL SCH (08:03)
[2023-06-09] MEDS: metFORMIN HCL ER 500 MG TABCR PO SCH (08:03)
[2023-06-09] MEDS: INSULIN ASPART PER UNIT CHARGE SC SCH ×2 (08:03→12:00)
[2023-06-09 11:20] VITALS: BP 132/88; PULSE 74; RESP 16; TEMP 97.5; O2SAT 98
--- NOTE | 2023-06-09 11:30 | Pharmacy Report ---
Pharmacy Glycemic Short Note 2 - Date of Service June 09, 2023 - Glycemic Short BSG Results (Last 24 hours): 06/08/23 06/08/23 06/09/23 16:13 19:53 06:59 Glucose 114 H POC Glucose 163 H 220 H 06/09/23 07:07 Glucose POC Glucose 103 H OUTPATIENT ANTIDIABETIC REGIMEN: * Metformin 1 g PO BIDM HbA1c: >16.9% (06/05/23) ASSESSMENT: 06/08/23: * Nuzhat received 68 units of insulin yesterday (40 were basal) * BSG below goal range this AM, reduce basal insulin by 25% (likely overcoming basal deficiency) * Metformin initiated yesterday to better simulate discharge needs * No glycemic stressors noted at this time * Novolog parameters likely need to be tighter (BSGs range high post mealtime), but will not tighten now due to patient having hypoglycemic symptoms with lower end of goal BSGs and being new to insulin with unclear discharge needs 06/07/23: * Nuzhat received 61 units of insulin yesterday (40 were basal) plus insulin from drip. * She was transitioned off the drip yesterday and BSGs trended upwards. Fasting BSG this AM slightly above goal range even with Novolog correction overnight. Basal insulin increased by 20%. Plan to transition basal insulin administration to once daily at bedtime. Will allow for increased basal insulin tonight based on BSG. * She did receive dexamethasone 4mg IV last night for suspected adrenal insufficiency causing hypotension which is also contributing to the hyperglycemia. NovoLog parameters tightened for the rest of today. * community health educator noted that the patient feels symptomatic if BSGs are too low due to her BSGs being so high normally, recommended increasing goal range to prevent, goal range adjusted. 06/06/23: * Labs improved this morning, anion gap closed * Discussed w/ skiver counter and will begin transition to SC basal/bolus today * IV fluids containing dextrose discontinued and diet ordered * Originally aiming for 0.5-0.8 unit/kg/day of insulin w/ 25 units of basal this morning, but BSGs continued to trend up this afternoon despite increasing insulin infusion rates (10.7 units/hr at time of this note). Will give additional 15 units of insulin to equal full weight-based stress of 3 basal dosing (~0.5 unit/kg). 06/05/23: * EG is a 57 year old female who presented to ED this morning w/ persistent vomiting and shortness of breath * Found to be in DKA on presentation * BSG > 800 mg/dL * Anion gap: 36 * Carbon dioxide: 7 mmol/L * ABG pH: 7.14 * IV fluids (Plasmalyte + 40 KCl @250 mL/hr) and insulin infusion initiated in ED * Will continue insulin infusion at least for the next 24 hours, which should be helpful in determining patient's insulin needs * Patient will require insulin regimen at time of discharge * SCr improving w/ IV fluids PLAN FOR INPATIENT GLYCEMIC CONTROL: * Hold outpatient oral diabetes medications * Basal insulin * Lantus 30 units SC HS * Bolus insulin * NovoLog per scale ACHS or Q6hrs while NPO * Goal Range: Low 140 mg/dL - High 180 mg/dL * Correction Factor: 25 mg/dL/unit * Nutritional / Prandial insulin per carb ratio of 1 unit per 8 grams CHO consumed * checks with same parameters
--- NOTE | 2023-06-09 11:47 | Hospitalist Progress Note ---
Date of Service June 09, 2023 Assessment & Plan (1) DKA (diabetic ketoacidosis): Plan: DKA Uncontrolled diabetes mellitus type 2 HbA1c >16.9 Usually on p.o. metformin Presented with anion gap metabolic acidosis in the setting of upper respiratory tract infection on doxycycline, prednisone course Serologic markers for type 1 diabetes--pending Insulin drip discontinued Continue SQ Insulin Monitor BGs Plan to discharge home today Advised to follow-up with PCP upon discharge Plan to discharge on: Semglee 30 units at bedtime Humalog before meals and at bedtime based on most current sliding scale Metformin 1000mg ER twice daily Recent URI Completed course of doxycycline for possible sinusitis, Flonase started TRINA Hyponatremia Hyperkalemia Resolved HTN Resume lisinopril, HCTZ as able Held due to hypotension while hospitalized Monitor BP Hyperlipidemia On statin DVT Px: Lovenox SQ Disposition Home Admission and Anticipated Discharge Date Admission Date: June 05, 2023 Subjective Patient is seen and examined at bedside States feeling better today Patient dizziness improved when compared yesterday Denies any chest pain, dyspnea, nausea, vomiting, abdominal pain Plan for discharge home today Review of Systems Review of Systems: All systems reviewed & are unremarkable except as noted in Subjective Physical Exam Physical Exam: Physical Exam: Vitals signs as noted above General Appearance:Moderately built and nourished, no distress Head: normocephalic, Atraumatic Eyes: normal inspection, EOMI Neck: supple, Trachea midline Respiratory/Chest: Normal breath sounds, CTA, No accessory muscle use Cardiovascular: S1, S2, No murmur Abdomen/GI:Soft, Non tender, Bowel sounds present Extremities/Musculoskeletal:normal inspection, no edema Neurologic/Psych:AAOX3, grossly no focal neurological deficits Skin: normal color, warm Results & Data Results & Data Vital Signs (Past 12 Hours) Vital Signs Temp Pulse Pulse Resp BP Pulse Ox O2 Del Method 06/09/23 11:19 36.4 C L 74 16 132/88 98 Room Air 06/09/23 07:18 36.7 C 72 18 122/80 100 Room Air 06/09/23 07:13 65 06/09/23 06:40 36.7 C 71 18 107/73 99 Room Air 06/09/23 03:42 36.9 C 71 20 133/76 99 Room Air 06/09/23 00:00 79 Laboratory Results [facility] 06/09/23 06:59 Sodium 141 Potassium 3.8 D Chloride 110 H Carbon Dioxide 25 BUN 14 Creatinine 0.98 Glucose 114 H Calcium 8.9 Liver Function 06/09/23 Range/Units 06:59 Total Bilirubin 0.5 (0.2-1.0) mg/dl AST 26 (13-39) U/L ALT 28 (7-52) U/L Alkaline Phosphatase 65 (34-104) U/L Albumin 3.4 (3.4-5.0) gm/dl (1) DKA (diabetic ketoacidosis) Diabetes mellitus complication detail: without coma Diabetes mellitus type: other specified (including JEANMARIE) Qualified Code(s): E13.10 - Other specified diabetes mellitus with ketoacidosis without coma
--- NOTE | 2023-06-09 12:16 | Discharge Summary ---
Date of Service June 09, 2023 Admission HPI Per Admitting Provider Patient is a 57-year-old female with history of diabetes mellitus, hypertension, hyperlipidemia, paroxysmal tachycardia and other comorbidities presents with history of worsening shortness of breath associated with feeling groggy since yesterday. Patient is a poor historian secondary to respiratory distress. Most of the history is obtained from patient's family at bedside. Patient apparently has been recovering from URI since 5 days duration. She is currently on doxycycline and completed 5-day course of prednisone. She admits to noticing her blood glucose levels elevated which she thought to be secondary to steroid use but could not determine how high as the machine could not read. She also has been very thirsty since 3 days duration. She admits to having dizziness, poor appetite, cough with whitish expectoration since 2 days duration. She has been taking her medications regularly. Reports having nausea, vomiting since yesterday. Denies any history of chest pain, palpitations, pedal edema, he moptysis, fever, fall, syncope, headache, change in vision, abdominal pain, blood in stools, diarrhea, dysuria, hematuria. Admission Exam Per Admitting Provider Physical Exam: Vitals signs as noted above General Appearance:Moderately built and nourished, mild respiratory distress Head: normocephalic, Atraumatic Eyes: normal inspection, EOMI Neck: supple, Trachea midline Respiratory/Chest: Normal breath sounds, CTA, No accessory muscle use Cardiovascular: S1, S2, No murmur Abdomen/GI:Soft, Non tender, Bowel sounds present Extremities/Musculoskeletal:normal inspection, no edema Neurologic/Psych:AAOX3, grossly no focal neurological deficits Skin: normal color, warm Principal Diagnosis Diabetic ketoacidosis Uncontrolled diabetes Acute kidney injury Hyponatremia Hyperkalemia Discharge Data Allergies Allergy/AdvReac Type Severity Reaction Status Date / Time No Known Allergies Allergy Verified 06/05/23 09:10 [id number] Allergy Unknown Unknown Uncoded 06/05/23 09:10 [id number] Allergy Unknown Unknown Uncoded 06/05/23 09:10 N Allergy Unknown Unknown Uncoded 06/05/23 09:10 Consultations 06/05/23 10:21 ED Decision to Admit Stat 06/05/23 12:24 Consult Biomedical Equipment Tech Routine Procedures Performed Laboratory Results WBC 3.88 K/ul (4.8-10.8) L 06/07/23 09:03 RBC 3.67 M/uL (4.20-5.40) L 06/07/23 09:03 Hgb 10.4 g/dl (12.0-16.0) L 06/07/23 09:03 POC Hgb 16.0 g/dl (12.0-16.0) 06/05/23 08:21 Hct 30.9 % (37.0-47.0) L 06/07/23 09:03 POC Hct 47 % (37-47) 06/05/23 08:21 MCV 84.2 fL (80.0-100.0) 06/07/23 09:03 MCH 28.3 pg (25.0-34.0) 06/07/23 09:03 MCHC 33.7 g/dL (32.0-36.0) 06/07/23 09:03 RDW Std Deviation 40.0 fL (36.4-46.3) 06/07/23 09:03 RDW Coeff of Hever 13.1 % (11.5-14.5) 06/07/23 09:03 Plt Count 108 K/uL (130-400) L 06/07/23 09:03 MPV 10.0 fL (9.4-12.4) 06/07/23 09:03 Immature Gran % (Auto) 0.8 % 06/07/23 09:03 Neut % (Auto) 75.8 % 06/07/23 09:03 Lymph % (Auto) 19.3 % 06/07/23 09:03 Carter % (Auto) 4.1 % 06/07/23 09:03 Eos % (Auto) 0.0 % 06/07/23 09:03 Baso % (Auto) 0.0 % 06/07/23 09:03 Neut # (Auto) 2.94 K/uL (1.40-6.50) 06/07/23 09:03 Lymph # (Auto) 0.75 K/uL (1.20-3.40) L 06/07/23 09:03 Carter # (Auto) 0.16 K/uL (0.11-0.59) 06/07/23 09:03 Eos # (Auto) 0.00 K/uL (0.00-0.50) 06/07/23 09:03 Baso # (Auto) 0.00 K/uL (0.00-0.20) 06/07/23 09:03 Immature Gran # (Auto) 0.03 K/uL (0.01-0.20) 06/07/23 09:03 Platelet Estimate Normal (Normal) 06/06/23 04:17 PT 10.3 Seconds (9.0-12.0) 06/05/23 09:44 INR 0.9 (0.9-1.1) 06/05/23 09:44 ABG pH 7.14 (7.35-7.45) L* 06/05/23 08:37 ABG pCO2 9 mmHg (35-46) L 06/05/23 08:37 ABG pO2 132 mmHg (80-95) H 06/05/23 08:37 ABG HCO3 3 mmol/L (19-24) L 06/05/23 08:37 ABG O2 Saturation 96.7 % (90-95) H 06/05/23 08:37 ABG Base Excess -23.3 mEq/L (-9-1.8) L 06/05/23 08:37 Benjamin Test Pos (Pos) 06/05/23 08:37 VBG pH 7.45 (7.36-7.41) H 06/09/23 06:59 Oxygen Given 4L 06/05/23 08:37 POC Sodium 124 mmol/L (135-144) L 06/05/23 08:21 Sodium 141 mmol/L (136-145) 06/09/23 06:59 POC Potassium 5.1 mmol/L (3.3-5.0) H 06/05/23 08:21 Potassium 3.8 mmol/L (3.5-5.1) D 06/09/23 06:59 POC Chloride 95 mmol/L (101-112) L 06/05/23 08:21 Chloride 110 mmol/L (98-107) H 06/09/23 06:59 Carbon Dioxide 25 mmol/L (21-32) 06/09/23 06:59 POC Total CO2 8 mmol/L (24-31) L* 06/05/23 08:21 Anion Gap 6 (3-11) 06/09/23 06:59 POC Anion Gap 27.0 mmol/L (16-25) H 06/05/23 08:21 POC BUN 85 mg/dl (7-18) H 06/05/23 08:21 BUN 14 mg/dl (6-23) 06/09/23 06:59 Creatinine 0.98 mg/dl (0.6-1.2) 06/09/23 06:59 POC Creatinine 2.5 mg/dl (0.6-1.3) H 06/05/23 08:21 Est Cr Clr Drug Dosing 69.9 ml/min 06/09/23 06:59 Est GFR ( Amer) 74.2 ml/min 06/09/23 06:59 Est GFR (Non-Af Amer) 64.0 ml/min 06/09/23 06:59 BUN/Creatinine Ratio 14.3 (10-20) 06/09/23 06:59 Glucose 114 mg/dl (70-99(Fasting)) H 06/09/23 06:59 POC Glucose 163 mg/dl (70-99) H 06/09/23 11:17 POC Glucose (other) > 700 mg/dl (70-99) H* 06/05/23 08:21 Estimat Average Glucose > 438 mg/dl 06/05/23 12:51 Hemoglobin A1c > 16.9 % (4.5-5.6) H 06/05/23 12:51 Lactate 1.0 mmol/L (0.4-2.0) 06/06/23 19:39 Calcium 8.9 mg/dl (8.6-10.3) 06/09/23 06:59 POC Ioniz Calcium Florian 1.18 mmol/l (1.12-1.32) 06/05/23 08:21 Phosphorus 2.8 mg/dl (2.5-4.9) 06/09/23 06:59 Magnesium 1.9 mg/dl (1.7-2.4) 06/09/23 06:59 Total Bilirubin 0.5 mg/dl (0.2-1.0) 06/09/23 06:59 AST 26 U/L (13-39) 06/09/23 06:59 ALT 28 U/L (7-52) 06/09/23 06:59 Alkaline Phosphatase 65 U/L (34-104) 06/09/23 06:59 Troponin I High Sens 6.9 pg/ml (0-14) 06/05/23 08:15 Total Protein 5.6 gm/dl (6.0-8.3) L 06/09/23 06:59 Albumin 3.4 gm/dl (3.4-5.0) 06/09/23 06:59 Globulin 2.2 gm/dl (2.5-4.0) L 06/09/23 06:59 Albumin/Globulin Ratio 1.5 (0.9-2) 06/09/23 06:59 Lipase 112 U/L (11-82) H 06/06/23 04:17 Procalcitonin 0.45 ng/ml (0-0.5) 06/05/23 11:28 Random Cortisol 18.93 mcg/dl 06/06/23 01:23 Urine Color Yellow 06/05/23 12:40 Urine Appearance Clear (Clear) 06/05/23 12:40 Urine pH 5.0 (4.5-7.5) 06/05/23 12:40 Ur Specific [place] 1.024 (1.000-1.030) 06/05/23 12:40 Urine Protein Negative (Negative) 06/05/23 12:40 Urine Glucose (UA) 3+ (Negative) H 06/05/23 12:40 Urine Ketones 4+ (Negative) H 06/05/23 12:40 Urine Blood Negative (Negative) 06/05/23 12:40 Urine Nitrite Negative (Negative) 06/05/23 12:40 Urine Bilirubin Negative (Negative) 06/05/23 12:40 Urine Urobilinogen Negative (Negative) 06/05/23 12:40 Ur Leukocyte Esterase Negative (Negative) 06/05/23 12:40 Urine Osmolality 553 mOsm/kg (500-800) 06/05/23 12:40 Ur Random Creatinine 24.0 mg/dl 06/05/23 12:40 Ur Random Sodium 42 mmol/L 06/05/23 12:40 Ur Random Potassium 30.0 mmol/L 06/05/23 12:40 Ur Random Chloride 25 mmol/L 06/05/23 12:40 Nasal Screen MRSA (PCR) Negative (Negative) 06/05/23 12:05 Adenovirus (PCR) Not Detected (NotDetected) 06/05/23 08:50 B. pertussis DNA (PCR) Not Detected (NotDetected) 06/05/23 08:50 B.parapertussis DNA PCR Not Detected (NotDetected) 06/05/23 08:50 C. pneumoniae DNA (PCR) Not Detected (NotDetected) 06/05/23 08:50 Coronavirus OC43 (PCR) Not Detected (NotDetected) 06/05/23 08:50 Coronavirus HKU1 (PCR) Not Detected (NotDetected) 06/05/23 08:50 Coronavirus 229E (PCR) Not Detected (NotDetected) 06/05/23 08:50 SARS-CoV-2 (PCR) NEGATIVE (Negative) 06/05/23 08:50 SARS-CoV-2 (PCR) Not Detected (NotDetected) 06/05/23 08:50 Coronavirus NL63 (PCR) Not Detected (NotDetected) 06/05/23 08:50 Human Metapneumovir PCR Not Detected (NotDetected) 06/05/23 08:50 Influenza Type A (PCR) Negative (Neg) 06/05/23 08:50 Influenza Type A (PCR) Not Detected (NotDetected) 06/05/23 08:50 Influenza Type B (PCR) Negative (Neg) 06/05/23 08:50 Influenza Type B (PCR) Not Detected (NotDetected) 06/05/23 08:50 M. pneumoniae (PCR) Not Detected (NotDetected) 06/05/23 08:50 Parainfluenza 1 (PCR) Not Detected (NotDetected) 06/05/23 08:50 Parainfluenza 2 (PCR) Not Detected (NotDetected) 06/05/23 08:50 Parainfluenza 3 (PCR) Not Detected (NotDetected) 06/05/23 08:50 Parainfluenza 4 (PCR) Not Detected (NotDetected) 06/05/23 08:50 RSV (RT-PCR) Negative (Neg) 06/05/23 08:50 RSV (PCR) Not Detected (NotDetected) 06/05/23 08:50 Entero/Rhino (PCR) Not Detected (NotDetected) 06/05/23 08:50 Impressions Chest X-Ray 06/05/23 08:19 XR chest 1V portable CLINICAL HISTORY: Cough. COMPARISON STUDY: No previous studies for comparison. FINDINGS: Lung volumes are normal. Lungs are clear. There is no pneumothorax or pleural effusion. Cardiac size is normal. Mediastinal contours are normal. There is no evidence for pulmonary edema. IMPRESSION: No acute cardiopulmonary findings. ACT 112: Negative or not required by law. Electronically signed by: Nathan Acuña M.D. 06/05/2023 8:38 AM Hospital Course (1) DKA (diabetic ketoacidosis): DKA Uncontrolled diabetes mellitus type 2 HbA1c >16.9 Usually on p.o. metformin Presented with anion gap metabolic acidosis in the setting of upper respiratory tract infection on doxycycline, prednisone course Serologic markers for type 1 diabetes--pending Insulin drip discontinued Continue SQ Insulin Monitor BGs Plan to discharge home today Advised to follow-up with PCP upon discharge Plan to discharge on: Semglee 30 units at bedtime Humalog before meals and at bedtime based on most current sliding scale Metformin 1000mg ER twice daily Recent URI Completed course of doxycycline for possible sinusitis, Flonase started TRINA Hyponatremia Hyperkalemia Resolved HTN Resume lisinopril, HCTZ as able Held due to hypotension while hospitalized Monitor BP Hyperlipidemia On statin DVT Px: Lovenox SQ Disposition Home Total Time Total Time Spent Total Time Spent (In Minutes): 55 minutes Discharge Plan Discharge Items Patient Disposition: Home - Self-Care Reason For Visit: DKA Discharge Diagnosis: Diabetic ketoacidosis Uncontrolled diabetes Acute kidney injury Hyponatremia Hyperkalemia Activity: Per Instructions section Exercise/Sports: Gradually increase as tolerated Non-emergency contact: Primary Care Provider Call non-emergency contact if: you have any medication questions, your symptoms worsen, your pain is concerning for you and you have a fever Follow-up/Referrals: [facility] [Other] (The [facility] clinic will contact you to set up an appointment to discuss diabetic education and assist with your new medications.) Jean Claude Serrano MD [Primary Care Provider] - (Date & Time 06/15/2023 11:20 AM Provider Jean Claude Serrano MD [facility] ) Diet: Carb Consistent or DM2 Addtl Attending Provider Instructions: Follow-up with your primary care physician Dr. Serrano on 06/15/2023 11:20 AM --- Monitor blood glucose levels regularly at home as advised. Discuss with your primary care physician for further adjustment of insulin/medications as needed. --Your blood test: Serological markers for diabetes are pending at the time of discharge. Follow-up with your physician for results. Seek immediate medical attention if your symptoms reoccur or worsen Please take all medications as instructed on discharge list below. Please call if you have any questions or problems. You can reach a [facility] hospitalist on duty at [facility] 24 hours a day by calling [phone] Pending Studies at Discharge: Yes Studies:: Serologic markers for diabetes Stand-Alone Forms: My [facility], Smoking Cessation Medications and DC Order Prescriptions: New Humalog KwikPen Insulin 200 unit/mL (3 mL) insulin pen 1 sliding scale dose subcut USEASDIRECTD Qty: 6 1RF (DME) pen needle, diabetic [BD Ultra-Fine Katie Pen Needle] 32 gauge x 5/32" needle See Rx Instructions .Route Qty: 100 2RF Rx Instructions: As directed, up to 5x a day (DME) OneTouch Verio test strips Strip See Rx Instructions .Route Qty: 100 2RF Rx Instructions: As directed, up to 5x day (DME) lancets [OneTouch Delica Plus Lancet] 33 gauge misc See Rx Instructions .Route Qty: 100 2RF Rx Instructions: As directed, up to 5x a day fluticasone propionate 50 mcg/actuation [place],Suspension 1 spray NA BID 10 Days Qty: 16 0RF metformin 1,000 mg tablet extended release 24 hr 1,000 mg PO BIDM Qty: 60 1RF insulin glargine-yfgn [Semglee(insulin glarg-yfgn)Pen] 100 unit/mL (3 mL) insulin pen 30 unit subcut PM Qty: 15 0RF Continued atorvastatin 20 mg tablet 20 mg PO HS Held hydrochlorothiazide 25 mg tablet 25 mg PO QAM Hold Instructions: Resume on 06/12/23. lisinopril 40 mg tablet 40 mg PO QAM Hold Instructions: Resume on 06/12/23. Discontinued doxycycline monohydrate 100 mg tablet 100 mg PO BID Rx Instructions: Start Date 05/29/23 - End Date 06/08/23 metformin 500 mg tablet extended release 24 hr 1,000 mg PO BID Discharge Orders: Discharge Order (Routine); Ordered 12/06/23 Ordered By: Tenzin Peterson Admission Data Admit Date/Time: 06/05/23 10:31 Attending Provider: Tenzin Peterson Admit Provider: Tenzin Peterson Primary Care Provider: Jean Claude Serrano Other Providers: Tenzin Peterson; Jakub Miguel
[2023-06-09 14:22] LABS: Uric Acid, Random Urine 8 mg/dL
[2023-06-09] MEDS ORDERED: LANTUS PER UNIT CHARGE SC SCH (21:00)
== END 2023-06-09 13:37 | disposition home or self-care (01) | DRG 638 ==
LOC: ED 07:56 → SUATTDRO 10:31 → 1E 10:31 → 2S 06-07 05:50